=== PATIENT | female | born 1995 | race Hispanic/Latino ===

== ENCOUNTER 2018-02-12 23:51 | Emergency (ER) | payer BC, SELFPAY ==
[2018-02-13 00:39] LABS: Barbiturates NEGATIVE (NEGATIVE); Benzodiazepines NEGATIVE (NEGATIVE); Cocaine NEGATIVE (NEGATIVE); METHAMPHETAM NEGATIVE (NEGATIVE); Methadone NEGATIVE (NEGATIVE); Opiates NEGATIVE (NEGATIVE); Phencyclidine NEGATIVE (NEGATIVE); THC Cannibis NEGATIVE (NEGATIVE)
[2018-02-13 00:40] LABS: Absolute Lymphocytes (CBC) 3.6 K/uL (0.7-4.9); Absolute Monocytes 0.6 K/uL (0.1-1.3); Absolute Neutrophil 4.2 K/uL (1.8-8.0); Basophils % 0.6 % (0-1.3); Eosinophils % 0.5 % (0-4.4); Hematocrit 37.9 % (36.0-45.0); Lymphocytes % 41.9 % (15.3-44.8); MCH 31.3 pg (27.0-35.0); MCV 89.6 fL (80-100); MPV 7.7 fL (7.6-11.3); Monocytes % 7.2 % (3.3-12.3); RBC Red Blood Cell Count 4.23 M/uL (3.86-4.86)
[2018-02-13] MEDS ORDERED: DIAZEPAM 5 MG TABLET ONE (00:43)
[2018-02-13] MEDS ORDERED: NA CHLORIDE 0.9% 1,000 ML ONE (00:43)
[2018-02-13 00:54] LABS: Potassium 3.1 mmol/L (3.5-5.1)
[2018-02-13 01:10] LABS: Urine Blood TRACE (NEG); Urine Glucose NEGATIVE (NEG); Urine Protein NEGATIVE (NEG); Urine Specific Gravity <1.005 (1.005-1.030)
--- NOTE | 2018-02-13 01:29 | ER ---
Nurse's Notes [facility] Name: Christen Saxena Age: 22 yrs Sex: Female : 1995 Arrival Date: 02/13/2018 Time: 00:02 Bed 16 Private MD: Diagnosis: Hyperventilation Presentation: 02/13 00:03 Presenting complaint: Patient states: she is having a panic attack does not know why or bb what she was doing when it started pt states she was drinking alcohol today. Transition of care: patient was not received from another setting of care. Onset of symptoms was February 13, 2018. Risk Assessment: Do you want to hurt yourself or someone else? Patient reports no desire to harm self or others. Initial Sepsis Screen: Does the patient meet any 2 criteria? No. Patient's initial sepsis screen is negative. Does the patient have a suspected source of infection? No. Patient's initial sepsis screen is negative. Care prior to arrival: None. 00:03 Method Of Arrival: Ambulatory bb 00:03 Acuity: JUAN R 3 bb 00:06 Note pt is tachypneic and states "my face in numb". bb Triage Assessment: 00:05 General: Appears distressed, uncomfortable, Behavior is cooperative, anxious. Pain: cc3 Denies pain. EENT: No signs and/or symptoms were reported regarding the EENT system. Neuro: Level of Consciousness is awake, alert, obeys commands, Oriented to person, place, time, situation, Appropriate for age. Cardiovascular: Denies chest pain, Patient's skin is warm and dry. Respiratory: Reports shortness of breath at rest Airway is patent Respiratory effort is even, unlabored, Respiratory pattern is regular, symmetrical. GI: Abdomen is round non-distended. : No signs and/or symptoms were reported regarding the genitourinary system. Derm: No signs and/or symptoms reported regarding the dermatologic system. Musculoskeletal: Circulation, motion, and sensation intact. Range of motion: intact in all extremities. 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 - Social history:: Smoking status: unknown Patient uses alcohol, patient/guardian reports recent binge of alcohol consumption. - Ebola Screening: : No symptoms or risks identified at this time. Screenin:05 Abuse screen: Denies threats or abuse. Denies injuries from another. Nutritional cc3 screening: No deficits noted. Tuberculosis screening: No symptoms or risk factors identified. Fall Risk Ambulatory Aid- None/Bed Rest/Nurse Assist (0 pts). Gait- Normal/Bed Rest/Wheelchair (0 pts) Mental Status- Oriented to own ability (0 pts). Assessment: 00:05 General: see triage assessment. cc3 01:45 Reassessment: Patient appears in no apparent distress at this time. Patient and/or cc3 family updated on plan of care and expected duration. Pain level reassessed. Patient is alert, oriented x 3, equal unlabored respirations, skin warm/dry/pink. GALA Perez discharged the patient home, no prescription given. IV cannula removed and patient left ER vitally stable and ambulatory with her . Vital Signs: 00:04 BP 130 / 89; Pulse 117; Resp 26 S; Pulse Ox 97% on R/A; bb 01:30 BP 128 / 87; Pulse 103; Resp 20 S; Pulse Ox 98% on R/A; cc3 ED Course: 00:02 Patient arrived in ED. bb 00:03 Stephanie Perez FNP-C is PSYCHIATRICP. kb 00:03 Freedom Humphries MD is Attending Physician. kb 00:04 Triage completed. bb 00:04 Arm band placed on Patient placed in an exam room, on a stretcher, on pulse oximetry. bb Family accompanied patient. 00:05 Patient has correct armband on for positive identification. Placed in gown. Bed in low cc3 position. Call light in reach. Side rails up X 1. manager monitoring on. Pulse ox on. NIBP on. 00:08 Kary Garcia is Primary Nurse. cc3 00:25 Inserted saline lock: 20 gauge in left hand, using aseptic technique. Blood collected. cc3 01:45 No provider procedures requiring assistance completed. IV discontinued, intact, cc3 bleeding controlled, No redness/swelling at site. Pressure dressing applied. Administered Medications: 00:35 Drug: NS 0.9% 1000 ml Route: IV; Rate: 1000 ml; Site: left hand; cc3 01:40 Follow up: Response: No adverse reaction; IV Status: Completed infusion; IV Intake: cc3 1000ml 00:35 Drug: Valium 5 mg Route: PO; cc3 01:00 Follow up: Response: No adverse reaction; Anxiety decreased cc3 01:24 Drug: Potassium Chloride 40 mEq Route: PO; rv 01:45 Follow up: Response: No adverse reaction cc3 Intake: 01:40 IV: 1000ml; Total: 1000ml. cc3 Outcome: 01:28 Discharge ordered by MD. monahan 01:45 Discharged to home ambulatory, with family. cc3 01:45 Condition: stable 01:45 Discharge instructions given to patient, family, Instructed on discharge instructions, follow up and referral plans. Demonstrated understanding of instructions, follow-up care. 01:48 Patient left the ED. cc3 Signatures: Stephanie Perez, DURABILITY TECHNICIAN-C DURABILITY TECHNICIAN-CkLucia Burr RN RN bb Jan Castañeda RN RN rv Kary Garcia cc3 Corrections: (The following items were deleted from the chart) 00:06 00:03 Acuity: JUAN R 4 bb bb 04:40 04:39 Response: No adverse reaction; Anxiety decreased cc3 cc3
--- NOTE | 2018-02-13 01:29 | EDPHYS ---
Physician Documentation [facility] Name: Christen Saxena Age: 22 yrs Sex: Female : 1995 Arrival Date: 02/13/2018 Time: 00:02 Bed 16 Private MD: ED Physician Freedom Humphries HPI: 02/13 00:12 This 22 yrs old Female presents to ER via Ambulatory with complaints of kb Anxiety. 00:12 The patient presents to the emergency department with anxiety, a history of substance kb abuse, Type: alcohol . Onset: The symptoms/episode began/occurred 30 minute(s) ago. Associated signs and symptoms: Pertinent positives; anxiety, shortness of breath. Severity of symptoms: At their worst the symptoms were moderate in the emergency department the symptoms are unchanged. The patient has not experienced similar symptoms in the past. The patient has not recently seen a physician. Pt reports drinking alcohol (6-8 drinks) with father's fiance. Got home and started having shortness of breath, breathing fast, anxiety, numbness of face, and tingling in fingers. Pt appears anxious. Pt able to control breathing with coaching. ETOH intoxication noted. 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 - Social history:: Smoking status: unknown Patient uses alcohol, patient/guardian reports recent binge of alcohol consumption. - Ebola Screening: : No symptoms or risks identified at this time. ROS: 00:11 Constitutional: Negative for fever, chills, and weight loss, ENT: Negative for injury, kb pain, and discharge, Neck: Negative for injury, pain, and swelling, Cardiovascular: Negative for chest pain, palpitations, and edema, Abdomen/GI: Negative for abdominal pain, nausea, vomiting, diarrhea, and constipation, Back: Negative for injury and pain, : Negative for injury, bleeding, discharge, and swelling, MS/Extremity: Negative for injury and deformity, Skin: Negative for injury, rash, and discoloration. 00:11 Respiratory: Positive for shortness of breath, Negative for cough, dyspnea on exertion, hemoptysis, orthopnea, pleurisy, sputum production, wheezing. 00:11 Neuro: Positive for numbness, tingling, numbness to face and tingling to fingers after hyperventilating. Exam: 00:10 Head/Face: Normocephalic, atraumatic. ENT: Nares patent. No nasal discharge, no kb septal abnormalities noted. Tympanic membranes are normal and external auditory canals are clear. Oropharynx with no redness, swelling, or masses, exudates, or evidence of obstruction, uvula midline. Mucous membranes moist. Neck: Trachea midline, no thyromegaly or masses palpated, and no cervical lymphadenopathy. Supple, full range of motion without nuchal rigidity, or vertebral point tenderness. No Meningismus. Chest/axilla: Normal chest wall appearance and motion. Nontender with no deformity. No lesions are appreciated. Cardiovascular: Regular rate and rhythm with a normal S1 and S2. No gallops, murmurs, or rubs. Normal PMI, no JVD. No pulse deficits. Abdomen/GI: Soft, non-tender, with normal bowel sounds. No distension or tympany. No guarding or rebound. No evidence of tenderness throughout. Skin: Warm, dry with normal turgor. Normal color with no rashes, no lesions, and no evidence of cellulitis. MS/ Extremity: Pulses equal, no cyanosis. Neurovascular intact. Full, normal range of motion. Neuro: Awake and alert, GCS 15, oriented to person, place, time, and situation. Cranial nerves II-XII grossly intact. Motor strength 5/5 in all extremities. Sensory grossly intact. Cerebellar exam normal. Normal gait. 00:10 Constitutional: The patient appears alert, awake, anxious, smells of alcohol, ETOH. 00:10 Respiratory: Respirations: hyperventilating. Vital Signs: 00:04 BP 130 / 89; Pulse 117; Resp 26 S; Pulse Ox 97% on R/A; bb 01:30 BP 128 / 87; Pulse 103; Resp 20 S; Pulse Ox 98% on R/A; cc3 MDM: 00:03 Patient medically screened. kb 00:10 Data reviewed: vital signs, nurses notes. Data interpreted: Pulse oximetry: on room air kb is 97 %. Interpretation: normal. 01:21 Counseling: I had a detailed discussion with the patient and/or guardian regarding: the kb historical points, exam findings, and any diagnostic results supporting the discharge/admit diagnosis, lab results, the need for outpatient follow up, a family practitioner, to return to the emergency department if symptoms worsen or persist or if there are any questions or concerns that arise at home. 02/13 00:07 Order name: UDS; Complete Time: 00:43 kb 02/13 00:07 Order name: CBC with Diff; Complete Time: 00:53 kb 02/13 00:07 Order name: Basic Metabolic Panel; Complete Time: 00:59 kb 02/13 00:07 Order name: ETOH Level; Complete Time: 00:59 kb 02/13 00:41 Order name: Urine Dipstick--Ancillary (enter results); Complete Time: 01:19 bb 02/13 00:54 Order name: Test Serum, Qualitat; Complete Time: 01:19 EDMS 02/13 00:07 Order name: Urine Dipstick-Ancillary (obtain specimen); Complete Time: 00:50 kb 02/13 00:07 Order name: Urine Test (obtain specimen); Complete Time: 00:50 kb 02/13 00:07 Order name: EKG; Complete Time: 00:08 kb 02/13 00:07 Order name: EKG - Nurse/Tech; Complete Time: 00:50 kb Administered Medications: 00:35 Drug: NS 0.9% 1000 ml Route: IV; Rate: 1000 ml; Site: left hand; cc3 01:40 Follow up: Response: No adverse reaction; IV Status: Completed infusion; IV Intake: cc3 1000ml 00:35 Drug: Valium 5 mg Route: PO; cc3 01:00 Follow up: Response: No adverse reaction; Anxiety decreased cc3 01:24 Drug: Potassium Chloride 40 mEq Route: PO; rv 01:45 Follow up: Response: No adverse reaction cc3 Disposition: 03:01 Co-signature as Attending Physician, Freedom Humphries MD. rn Disposition: 02/13/18 01:28 Discharged to Home. Impression: Hyperventilation. - Condition is Stable. - Discharge Instructions: Hyperventilation, Panic Attacks, [id number]. - Medication Reconciliation Form, Thank You Letter, Antibiotic Education, Prescription Opioid Use form. - Follow up: Emergency Department; When: As needed; Reason: Worsening of condition. Follow up: Private Physician; When: 2 - 3 days; Reason: Recheck today's complaints, Continuance of care, Re-evaluation by your physician. Signatures: Dispatcher [employer] EDStephanie Massey, PAULA LANGE-Lucia Thorne, RN RN Freedom Washburn MD MD rn Vicente, Ronaldo, RN RN rv Cordel, Charlene cc3 Corrections: (The following items were deleted from the chart) 01:48 01:28 02/13/2018 01:28 Discharged to Home. Impression: Hyperventilation. Condition is cc3 Stable. Discharge Instructions: Hyperventilation, Panic Attacks, [id number]. Forms are Medication Reconciliation Form, Thank You Letter, Antibiotic Education, Prescription Opioid Use. Follow up: Emergency Department; When: As needed; Reason: Worsening of condition. Follow up: Private Physician; When: 2 - 3 days; Reason: Recheck today's complaints, Continuance of care, Re-evaluation by your physician. kb
[2018-02-13] MEDS ORDERED: POTASSIUM CL SA 10 MEQ TAB PO ONE (01:31)
[2018-02-13 02:42] VITALS: BP 130/89; O2SAT 97
--- NOTE | 2018-02-13 10:16 | EKG ---
Test Date: 2018-02-13 Test Time: 00:41:21 Dairy Processing Supervisor: JEFFERY MEASUREMENT RESULTS: Intervals: Rate: 106 VA: 140 QRSD: 86 QT: 362 QTc: 480 [place]: P: 52 VA: 140 QRS: 30 T: 33 INTERPRETIVE STATEMENTS: Sinus tachycardia Otherwise normal ECG Compared to ECG 12/06/2013 17:11:39 Sinus rhythm no longer present Sinus arrhythmia no longer present Electronically Signed On 02-13-18 10:16:02 SHELTER DIRECTOR by Galdino Skaggs
== END 2018-02-13 01:48 | disposition home or self-care (01) ==
LOC: ER 23:51
DX: R06.4 Hyperventilation (principal)
CPT/HCPCS: 36415; 80048; 80307; 80320; 81003; 84703; 85025; 93005; 96360; 99284; J7030

== ENCOUNTER 2018-07-30 10:21 | Emergency (ER) | payer BC, SELFPAY ==
[2018-07-30] MEDS ORDERED: HYDROCODONE/APAP 10/325 TAB ONE (11:41)
--- NOTE | 2018-07-30 11:48 | RAD REPORT ---
EXAM DESCRIPTION: RAD - Sacrum And Coccyx - 07/30/2018 11:35 am CLINICAL HISTORY: fall, low back pain COMPARISON: No comparisons FINDINGS: No fracture or subluxation identified.
--- NOTE | 2018-07-30 11:49 | RAD REPORT ---
EXAM DESCRIPTION: RAD - Lumbar Spine 3 Views - 07/30/2018 11:36 am CLINICAL HISTORY: fall Radiculopathy COMPARISON: Sacrum And Coccyx dated 07/30/2018 FINDINGS: Vertebral body heights appear maintained. No compression fracture noted. Disc spaces are m aintained. No spondylolysis or spondylolisthesis. IMPRESSION: Negative study.
--- NOTE | 2018-07-30 12:08 | RAD REPORT ---
EXAM DESCRIPTION: CT - [id number] - 07/30/2018 11:53 am CLINICAL HISTORY: Fall, head and neck injury, headache, neck pain, loss of consciousness COMPARISON: None. TECHNIQUE: Axial 5 mm thick images of the head were obtained. Axial 2 mm thick images of the cervic al spine were obtained with sagittal and coronal reconstruction images generated and reviewed. All CT scans are performed using dose optimization technique as appropriate and may include automated exposure control or mA/KV adjustment according to patient size. FINDINGS: No intracranial hemorrhage, mass, edema or acute intracranial finding. Ventricles are normal. No extr a-axial fluid collections. Mastoid air cells and paranasal sinuses are clear. No globe or orbit abnor mality seen. Cervical bodies are normal in height. There is straightening and slight reversal of the usual cervica l lordosis with the apex at the C5-6 level. No subluxation abnormality. In the trauma setting this is typically due to muscle spasm. Positioning artifact is possible as well. No disk space narrowing. No fracture or acute bony abnormality. Central canal detail is inherently limited. No paraspinal mass or hematoma. IMPRESSION: Negative CT head examination for acute or significant finding. No fracture, subluxation or other acute cervical spine finding.
--- NOTE | 2018-07-30 12:24 | ER ---
Nurse's Notes [facility] Name: Christen Saxena Age: 22 yrs Sex: Female : 1995 Arrival Date: 07/30/2018 Time: 10:24 Bed 17 Private MD: Diagnosis: Unspecified injury of head;Coccyx Sprain Presentation: 07/30 10:27 Presenting complaint: Patient states: "I fell down about 8-9 stairs last night and my sv butt/tailbone hurts and mid back area." Reports hitting the occipital part of her head but no LOC. Care prior to arrival: None. Mechanism of Injury: Fall down 9 steps. Trauma event details: Injury occurred in the [facility], Injury occurred: at home. Injury occurred: July 29, 2018. 10:27 Acuity: JUAN R 3 sv 10:27 Method Of Arrival: Ambulatory sv 10:37 Transition of care: patient was not received from another setting of care. Onset of sv symptoms was July 29, 2018. Risk Assessment: Do you want to hurt yourself or someone else? Patient reports no desire to harm self or others. Initial Sepsis Screen: Does the patient meet any 2 criteria? No. Patient's initial sepsis screen is negative. Does the patient have a suspected source of infection? No. Patient's initial sepsis screen is negative. 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 07/23/2018 sv Trauma Activation: Alert Physician: ED Physician; Name: Dr Lama/Gualberto COTTRELL; Notified At: 10:45; Arrived At: 10:40 Physician: General Surgeon; Name: ; Notified At: 10:45; Arrived At: Physician: Radiology; Name: Lanny Harley-CT; Notified At: 10:45; Arrived At: 10:49 Physician: Respiratory; Name: ; Notified At: 10:45; Arrived At: Physician: Lab; Name: ; Notified At: 10:45; Arrived At: 10:45 Primary RN: Mary Servin RN, Secondary RN: Judy, durability technician: SOCORRO, mail clerk: Gertrude sv Historical: - Allergies: 10:37 No Known Allergies; sv - PMHx: 10:37 Ovarian cyst; sv - PSHx: 10:37 ; sv - Immunization history:: Adult Immunizations up to date. - Social history:: Smoking status: Patient/guardian denies using tobacco, Patient uses alcohol, occasionally. - Ebola Screening: : No symptoms or risks identified at this time. Screenin:38 Abuse screen: Denies threats or abuse. Denies injuries from another. Nutritional sv screening: No deficits noted. Tuberculosis screening: No symptoms or risk factors identified. Fall Risk None identified. Primary Survey: 10:27 NO uncontrolled hemorrhage observed. A: The patient is alert. Airway: patent, No sv supplemental oxygen in use on arrival. Oral cavity: clear, Trachea midline. Breathing/Chest: Respiratory pattern: regular, Respiratory effort: spontaneous, unlabored, Chest inspection: symmetrical rise and fall of the chest. Circulation: Pulses: palpable right radial artery and left radial artery. Skin color: pink, Skin temperature: warm, dry. Disability Alert. Exposure/Environment: All clothing and personal items were removed. Forensic evidence collection is not deemed to be indicated at this time. Items placed in patient belonging bag. There is no evidence of uncontrolled external bleeding. No obvious injuries are noted at this time. A warming method has been applied: A warm blanket has been provided to the patient. 12:03 Reassessment Airway Airway Patent Oxygen No O2 Oral cavity Clear Trachea Midline sv Breathing/Chest Respiratory pattern Regular Respiratory effort Spontaneous Unlabored Chest inspection Symmetrical Circulation Heart tones Present Pulses Palpable Color Shedd Temperature Warm Dry Disability Alert. Secondary Survey: 10:27 HEENT: No deficits noted. Gastrointestinal: No deficits noted. : No deficits noted. sv No signs and/or symptoms were reported regarding the genitourinary system. Musculoskeletal: No deficits noted. No signs and/or symptoms reported regarding the musculoskeletal system. Assessment: 10:57 Reassessment: Patient appears in no apparent distress at this time. No changes from sv previously documented assessment. Patient and/or family updated on plan of care and expected duration. Pain level reassessed. Patient is alert, oriented x 3, equal unlabored respirations, skin warm/dry/pink. Pain: Complains of pain in low back area, mid back area and sacrum Pain does not radiate. Pain currently is 6 out of 10 on a pain scale. Quality of pain is described as tender, Pain began last night Is intermittent, episodic, Alleviated by repositioning, Aggravated by increased activity, weight bearing. 12:51 Reassessment: Patient appears in no apparent distress at this time. No changes from sv previously documented assessment. Patient and/or family updated on plan of care and expected duration. Pain level reassessed. Patient is alert, oriented x 3, equal unlabored respirations, skin warm/dry/pink. Vital Signs: 10:37 BP 104 / 68; Pulse 75; Resp 18; Temp 98.6(O); Pulse Ox 97% on R/A; Weight 77.11 kg; sv Height 5 ft. 3 in. (160.02 cm); Pain 6/10; 11:30 BP 120 / 70; Pulse 77; Resp 16; Pulse Ox 99% ; sv 12:50 BP 128 / 81; Pulse 85; Resp 18; Temp 98.5; Pulse Ox 100% ; Pain 2/10; sv 12:50 Pain 7/10; sv 10:37 Body Mass Index 30.11 (77.11 kg, 160.02 cm) sv Brave Coma Score: 10:27 Eye Response: spontaneous(4). Verbal Response: oriented(5). Motor Response: obeys sv commands(6). Total: 15. 12:51 Eye Response: spontaneous(4). Verbal Response: oriented(5). Motor Response: obeys sv commands(6). Total: 15. Trauma Score (Adult): 10:27 Eye Response: spontaneous(1); Verbal Response: oriented(1); Motor Response: obeys sv commands(2); Systolic BP: > 89 mm Hg(4); Respiratory Rate: 10 to 29 per min(4); Brave Score: 15; Trauma Score: 12 12:51 Eye Response: spontaneous(1); Verbal Response: oriented(1); Motor Response: obeys sv commands(2); Systolic BP: > 89 mm Hg(4); Respiratory Rate: 10 to 29 per min(4); Jamison Score: 15; Trauma Score: 12 ED Course: 10:24 Patient arrived in ED. as 10:27 Arm band placed on Patient placed in an exam room, on a stretcher. sv 10:27 Patient has correct armband on for positive identification. Placed in gown. Bed in low sv position. Call light in reach. Adult w/ patient. Pulse ox on. NIBP on. Door closed. Pillow given. 10:27 Patient maintains SpO2 saturation greater than 95% on room air. sv 10:30 Thermoregulation: warm blanket given to patient. sv 10:33 Gualberto You PA is PHCP. [facility] 10:33 Yonatan Lama MD is Attending Physician. [facility] 10:34 Mary Álvarez RN is Primary Nurse. sv 10:36 Triage completed. sv 10:40 Nurse Practitioner and/or Physician Online Retailer to see patient. sv 10:50 Radiology exam delayed due to test not completed at this time. sw 11:25 X-ray completed. Patient tolerated procedure well. Patient moved to CT via wheelchair. sw 11:26 Lumbar Spine (3 Views) XRAY In Process Unspecified. EDMS 11:26 Sacrum And Coccyx XRAY In Process Unspecified. EDMS 11:41 CT completed. Patient tolerated procedure well. Patient moved to CT via wheelchair. Patient moved back from CT. 11:49 Patient moved back from CT. sv 11:54 CT Head C Spine In Process Unspecified. EDMS 12:51 No provider procedures requiring assistance completed. Patient did not have IV access sv during this emergency room visit. Administered Medications: 12:03 Drug: Flinton 10 mg-325 mg 1 tabs Route: PO; sv 12:50 Follow up: Pain 7/10 Adult; Response: No adverse reaction; Pain is decreased sv Intake: 10:27 PO: 0ml; Total: 0ml. sv Output: 10:27 Urine: 0ml; Total: 0ml. sv Outcome: 12:23 Discharge ordered by . m 12:51 Discharged to home ambulatory, with family. sv 12:51 Condition: stable 12:51 Discharge instructions given to patient, family, Instructed on discharge instructions, follow up and referral plans. medication usage, Demonstrated understanding of instructions, follow-up care, medications, Prescriptions given X 1. 12:51 Patient left the ED. sv 12:51 Patient's length of stay in the Emergency Department was greater than 2 hours. due to sv dischargePatient's length of stay extended due to Signatures: Dispatcher [employer] EDMS Mary Álvarez RN RN Gualberto You PA PA jmm Jones, Susan sj Martinez, Amelia as Warren, Sandee sw Corrections: (The following items were deleted from the chart) 10:54 10:27 Trauma Activation: Not Applicable sv sv
--- NOTE | 2018-07-30 12:24 | EDPHYS ---
Physician Documentation [facility] Name: Christen Saxena Age: 22 yrs Sex: Female : 1995 Arrival Date: 07/30/2018 Time: 10:24 Bed 17 Private MD: ED Physician Yonatan Lama HPI: 07/30 10:42 This 22 yrs old Female presents to ER via Ambulatory with complaints of Fall jmm Injury. 10:42 Details of fall: The patient fell from a height. Onset: The symptoms/episode jmm began/occurred acutely, last night. Associated injuries: The patient sustained injury to the head, injury to the low back. This is a 22 year old female that presents to the ED with complaints of tailbone pain. patient slipped while walking down her stairs in socks. Patient states she fell down approx 8 steps. States hitting her head and feeling a pop in her lower back. patient states she lost consciousness. Denies headache or neck pain. Denies etoh last night. Denies chest pain, denies shortness of breath, denies abdominal pain, denies vomiting. . 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 - Social history:: Smoking status: Patient/guardian denies using tobacco, Patient uses alcohol, occasionally. - Ebola Screening: : No symptoms or risks identified at this time. ROS: 10:42 Constitutional: Negative for fever, chills, and weight loss, Cardiovascular: Negative jmm for chest pain, palpitations, and edema, Respiratory: Negative for shortness of breath, cough, wheezing, and pleuritic chest pain. 10:42 Neck: Negative for pain with movement, pain at rest. 10:42 Abdomen/GI: Negative for abdominal pain, nausea and vomiting. 10:42 Back: Positive for pain with movement. 10:42 Neuro: Negative for headache. 10:42 All other systems are negative. Exam: 10:42 Chest/axilla: Normal chest wall appearance and motion. Cardiovascular: Regular rate jmm and rhythm. No edema appreciated Respiratory: Normal respirations, no respiratory distress appreciated Abdomen/GI: Non distended, soft 10:42 Skin: General appearance color normal MS/ Extremity: Moves all extremities, no obvious deformities appreciated, no edema noted to the lower extremities Neuro: Awake and alert, normal gait Psych: Behavior is normal, Mood is normal, Patient is cooperative and pleasant 10:42 Constitutional: The patient appears in no acute distress, alert, awake. 10:42 Head/face: Exam is negative for cronin signs, raccoon eyes. 10:42 Neck: C-spine: appears grossly normal, ROM/movement: is normal. 10:42 Respiratory: the patient does not display signs of respiratory distress, Respirations: normal, Breath sounds: are clear throughout. 10:42 Abdomen/GI: Inspection: abdomen appears normal, Bowel sounds: normal, Palpation: abdomen is soft and non-tender, in all quadrants. 10:42 Back: pain, of the sacrum, ROM is normal. Vital Signs: 10:37 BP 104 / 68; Pulse 75; Resp 18; Temp 98.6(O); Pulse Ox 97% on R/A; Weight 77.11 kg; sv Height 5 ft. 3 in. (160.02 cm); Pain 6/10; 11:30 BP 120 / 70; Pulse 77; Resp 16; Pulse Ox 99% ; sv 12:50 BP 128 / 81; Pulse 85; Resp 18; Temp 98.5; Pulse Ox 100% ; Pain 2/10; sv 12:50 Pain 7/10; sv 10:37 Body Mass Index 30.11 (77.11 kg, 160.02 cm) sv [place] Coma Score: 10:27 Eye Response: spontaneous(4). Verbal Response: oriented(5). Motor Response: obeys sv commands(6). Total: 15. 12:51 Eye Response: spontaneous(4). Verbal Response: oriented(5). Motor Response: obeys sv commands(6). Total: 15. Trauma Score (Adult): 10:27 Eye Response: spontaneous(1); Verbal Response: oriented(1); Motor Response: obeys sv commands(2); Systolic BP: > 89 mm Hg(4); Respiratory Rate: 10 to 29 per min(4); [place] Score: 15; Trauma Score: 12 12:51 Eye Response: spontaneous(1); Verbal Response: oriented(1); Motor Response: obeys sv commands(2); Systolic BP: > 89 mm Hg(4); Respiratory Rate: 10 to 29 per min(4); [place] Score: 15; Trauma Score: 12 MDM: 10:[address] [facility] 12:22 Data reviewed: vital signs, nurses notes. Counseling: I had a detailed discussion with [facility] the patient and/or guardian regarding: the historical points, exam findings, and any diagnostic results supporting the discharge/admit diagnosis, radiology results, the need for outpatient follow up, to return to the emergency department if symptoms worsen or persist or if there are any questions or concerns that arise at home. 12:22 ED course: CT imaging is negative. Plain films negative. Patient given head injury [facility] return precautions patient understood and agrees with the plan of care. . 07/30 11:16 Order name: Urine Dipstick--Ancillary (enter results) 07/30 11:16 Order name: Urine --Ancillary (enter results) 07/30 10:46 Order name: CT Head C Spine; Complete Time: 12:10 [facility] 07/30 10:46 Order name: Lumbar Spine (3 Views) XRAY; Complete Time: 12:03 [facility] 07/30 10:46 Order name: Sacrum And Coccyx XRAY; Complete Time: 12:03 [facility] Administered Medications: 12:03 Drug: [place] 10 mg-325 mg 1 tabs Route: PO; sv 12:50 Follow up: Pain 09/30 Adult; Response: No adverse reaction; Pain is decreased sv Disposition: 15:29 Co-signature as Attending Physician, Yonatan Lama MD I agree with the assessment and kdr plan of care. Disposition: 07/30/18 12:23 Discharged to Home. Impression: Unspecified injury of head, Coccyx Sprain. - Condition is Stable. - Discharge Instructions: Back Pain, Adult, Head Injury, Adult. - Prescriptions for Ultracet 37.5- 325 mg Oral Tablet - take 1 tablet by ORAL route every 6 hours - for up to 5 days; do not exceed 8 tablets per day.; 12 tablet. - Medication Reconciliation Form, Thank You Letter, Antibiotic Education, Prescription Opioid Use form. - Follow up: Private Physician; When: 2 - 3 days; Reason: Recheck today's complaints, Continuance of care, Re-evaluation by your physician. Signatures: Dispatcher [employer] Mary Gibson RN RN Yonatan Luciano MD MD kdr Mickail, Joel, PA PA jmm Corrections: (The following items were deleted from the chart) 12:51 12:23 07/30/2018 12:23 Discharged to Home. Impression: Unspecified injury of head; sv Coccyx Sprain. Condition is Stable. Forms are Medication Reconciliation Form, Thank You Letter, Antibiotic Education, Prescription Opioid Use. Follow up: Private Physician; When: 2 - 3 days; Reason: Recheck today's complaints, Continuance of care, Re-evaluation by your physician. pam
[2018-07-30 13:05] VITALS: BP 104/68; TEMP 98.6; O2SAT 97
[2018-07-30 13:59] LABS: Urine Blood 3+ (NEG); Urine Glucose NEGATIVE (NEG); Urine Protein 1+ (NEG); Urine pH 7.5 (5.0-7.0)
== END 2018-07-30 12:51 | disposition home or self-care (01) ==
LOC: ER 10:21
DX: S09.90XA Unspecified injury of head, initial encounter (principal); S33.8XXA Sprain of other parts of lumbar spine and pelvis, initial encounter; W10.9XXA Fall (on) (from) unspecified stairs and steps, initial encounter; Y93.01 Activity, walking, marching and hiking
CPT/HCPCS: 70450; 72100; 72125; 72220; 81003; 81025; 99285

== ENCOUNTER 2019-09-27 17:24 | Emergency (ER) | payer SELFPAY ==
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
[2019-09-27] MEDS ORDERED: NA CHLORIDE 0.9% 1,000 ML ONE (20:25)
[2019-09-27 20:55] LABS: Absolute Lymphocytes (CBC) 2.7 K/uL (0.7-4.9); Basophils % 0.4 % (0-1.3); Hematocrit 37.9 % (36.0-45.0); Lymphocytes % 35.2 % (15.3-44.8); MPV 7.7 fL (7.6-11.3); RBC Red Blood Cell Count 4.19 M/uL (3.86-4.86)
[2019-09-27] MEDS ORDERED: TETANUS & DIPHTHERIA TOX,ADULT 0.5 ML VIAL ONE (20:57)
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
[2019-09-27 21:36] LABS: Potassium 3.8 mmol/L (3.5-5.1)
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
[2019-09-27] MEDS ORDERED: TRAMADOL HCL 50 MG TAB ONE (22:05)
[2019-09-27 22:54] VITALS: TEMP 98.1
[2019-09-27 22:55] VITALS: BP 113/77; O2SAT 100
== END 2019-09-27 22:07 | disposition home or self-care (01) ==
LOC: ER 17:24
DX: S09.90XA Unspecified injury of head, initial encounter (principal); S30.1XXA Contusion of abdominal wall, initial encounter; S90.811A Abrasion, right foot, initial encounter; Y04.2XXA Assault by strike against or bumped into by another person, initial encounter; Y93.9 Activity, unspecified; Y92.9 Unspecified place or not applicable; Z23 Encounter for immunization
CPT/HCPCS: 36415; 70450; 72125; 74177; 80048; 82565; 85025; 90471; 90714; 96360; 99284; J7030; Q9967

== ENCOUNTER 2019-09-30 12:15 | Emergency (ER) | payer SELFPAY ==
[2019-09-30] MEDS ORDERED: ONDANSETRON 4 MG (ODT) TAB ONE (15:25)
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
[2019-09-30 16:58] VITALS: TEMP 98.1
[2019-09-30 17:01] VITALS: BP 107/76; O2SAT 98
== END 2019-09-30 16:54 | disposition home or self-care (01) ==
LOC: ER 12:15
DX: S06.0X9A Concussion with loss of consciousness of unspecified duration, initial encounter (principal); R11.10 Vomiting, unspecified; R51 Headache; Y04.2XXA Assault by strike against or bumped into by another person, initial encounter; Y93.9 Activity, unspecified
CPT/HCPCS: 70450; 99283

== ENCOUNTER 2020-11-28 18:48 | Emergency (ER) | payer SELFPAY ==
--- NOTE | 2020-11-28 19:32 | EDPHYS ---
Physician Documentation [facility] Name: Christen Saxena Age: 25 yrs Sex: Female : 1995 Arrival Date: 11/28/2020 Time: 18:52 Bed Waiting Private MD: ED Physician Freedom Humphries HPI: 11/28 19:29 This 25 yrs old Female presents to ER via Ambulatory with complaints of Eye rn Pain, Redness of Eye. 19:29 The patient is experiencing redness, tearing, The patient sustained None. to both eyes, rn caused by an unknown mechanism. Onset: The symptoms/episode began/occurred 3 week(s) ago. Duration: the symptoms are continuous. Aggravated by blinking, light, Alleviated by nothing. Associated signs and symptoms: Pertinent negatives: chills, dizziness, fever, headache, runny nose. Patient wears soft contacts. Severity of symptoms: At their worst the symptoms were mild in the emergency department the symptoms are unchanged. The patient has not experienced similar symptoms in the past. The patient has not recently seen a physician. Patient reports redness and tearing of both eyes for 2 to 3 weeks. Diagnosed with Covid 3 weeks ago and states symptoms began around that time. No blurred vision. Does not have contacts in right now. No injury or splash. Does not feel like anything is in the eyes. No pain with eye movement. Reports mild sensitivity to light.. 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 - Social history:: Smoking status: Patient denies any tobacco usage or history of. Patient uses alcohol, occasionally. - Family history:: not pertinent. - Hospitalizations: : No recent hospitalization is reported. ROS: 19:29 Constitutional: Negative for fever, chills, and weight loss, Eyes: Positive for redness rn and clear drainage bilateral eyes ENT: Negative for injury, pain, and discharge, Cardiovascular: Negative for chest pain, palpitations, and edema, Respiratory: Negative for shortness of breath, cough, wheezing, and pleuritic chest pain, Neuro: Negative for headache, weakness, numbness, tingling, and seizure. Exam: 19:29 Constitutional: This is a well developed, well nourished patient who is awake, alert, rn and in no acute distress. Head/Face: Normocephalic, atraumatic. Eyes: Pupils equal round and reactive to light, extra-ocular motions intact. Lids and lashes normal. Cornea within normal limits. No evidence of corneal trauma or ulceration. Periorbital areas with no swelling, redness, or edema. Mild conjunctival injection with scleral injection bilaterally. Negative for hyphema. Negative for hypopyon Neuro: Awake and alert, GCS 15, oriented to person, place, time, and situation. Cranial nerves II-XII grossly intact. Motor strength 5/5 in all extremities. Sensory grossly intact. Cerebellar exam normal. Normal gait. Vital Signs: 19:26 BP 127 / 100; Pulse 90; Resp 20; Temp 98.6(O); Pulse Ox 100% ; Weight 79.38 kg (R); kg Height 5 ft. 3 in. (160.02 cm) (R); Pain 8/10; 19:26 Body Mass Index 31.00 (79.38 kg, 160.02 cm) kg MDM: 19:28 Patient medically screened. rn 19:29 Differential diagnosis: Corneal abrasion of Corneal ulcer of Acute iritis of Data rn reviewed: vital signs, nurses notes, and as a result, I will discharge patient. Counseling: I had a detailed discussion with the patient and/or guardian regarding: the historical points, exam findings, and any diagnostic results supporting the discharge/admit diagnosis, the need for outpatient follow up, to return to the emergency department if symptoms worsen or persist or if there are any questions or concerns that arise at home. Special discussion: I discussed with the patient/guardian in detail that at this point there is no indication for admission to the hospital. It is understood, however, that if the symptoms persist or worsen the patient needs to return immediately for re-evaluation. Based on the history and exam findings, there is no indication for further emergent testing or inpatient evaluation. I discussed with the patient/guardian the need to see the opthamologist for further evaluation of the symptoms. Administered Medications: No medications were administered Disposition Summary: 11/28/20 19:32 Discharge Ordered Location: Home rn Problem: an ongoing problem rn Symptoms: are unchanged rn Condition: Stable rn Diagnosis - Unspecified conjunctivitis rn Followup: rn - With: Dana Medellin MD - When: 1 - 2 days - Reason: Recheck today's complaints, Re-evaluation by your physician Discharge Instructions: - Discharge Summary Sheet rn - Bacterial Conjunctivitis, Adult rn - Viral Conjunctivitis, Adult rn Forms: - Medication Reconciliation Form rn - Thank You Letter rn - Antibiotic clinical appeals rn - Prescription Opioid Use rn Prescriptions: - Vigamox 0.5 % Ophthalmic Drops - instill 1 drop by OPHTHALMIC route every 8 hours for 7 days; 5 milliliter; rn Refills: 0, Product Selection Permitted Signatures: Freedom Humphries MD MD rn Graham, Kristen, RN RN kg
--- NOTE | 2020-11-28 19:32 | ER ---
Nurse's Notes [facility] Name: Christen Saxena Age: 25 yrs Sex: Female : 1995 Arrival Date: 11/28/2020 Time: 18:52 Bed Waiting Private MD: Diagnosis: Unspecified conjunctivitis Presentation: 11/28 19:26 Chief complaint: Patient states: Red and burning eyes x 3 wks since getting COVID. kg Coronavirus screen: Vaccine status: Patient reports being unvaccinated. Client denies travel out of the [place] in the last 14 days. Client presents with at least one sign or symptom that may indicate coronavirus-19. Standard/surgical mask placed on the client. Provider contacted for isolation considerations. Client reports previous positive COVID test result. Date of collection: November 13, 2020. Ebola Screen: Patient negative for fever greater than or equal to 101.5 degrees Fahrenheit, and additional compatible Ebola Virus Disease symptoms Patient denies exposure to infectious person. Patient denies travel to an Ebola-affected area in the 21 days before illness onset. Onset of symptoms was November 09, 2020. 19:26 Method Of Arrival: Ambulatory kg 19:49 Mechanism of Injury: No Mechanism of Injury. kg 19:49 Acuity: JUAN R 4 kg 19:49 Risk Assessment: Do you want to hurt yourself or someone else? Patient reports no kg desire to harm self or others. 19:50 Initial Sepsis Screen: Does the patient meet any 2 criteria? No. Patient's initial kg sepsis screen is negative. Does the patient have a suspected source of infection? No. Patient's initial sepsis screen is negative. Triage Assessment: 19:28 General: Appears in no apparent distress. Behavior is calm, cooperative, appropriate kg for age, quiet. Pain: Complains of pain in eyes Pain currently is 10 out of 10 on a pain scale. at worst was 10 out of 10 on a pain scale. level that patient reports is acceptable is 3 out of 10 on a pain scale. EENT: Eyes are tearing on right outer canthus, outer aspect of conjuctiva of right eye, iris of right eye, inner aspect of conjuctiva of right eye, outer aspect of conjuctiva of left eye, iris of left eye and inner aspect of conjunctiva of left eye Redness jose, worse in right eye. 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 - Social history:: Smoking status: Patient denies any tobacco usage or history of. Patient uses alcohol, occasionally. - Family history:: not pertinent. - Hospitalizations: : No recent hospitalization is reported. Screenin:48 Abuse screen: Denies threats or abuse. Denies injuries from another. Nutritional kg screening: No deficits noted. Tuberculosis screening: No symptoms or risk factors identified. Fall Risk None identified. Vital Signs: 19:26 BP 127 / 100; Pulse 90; Resp 20; Temp 98.6(O); Pulse Ox 100% ; Weight 79.38 kg (R); kg Height 5 ft. 3 in. (160.02 cm) (R); Pain 8/10; 19:26 Body Mass Index 31.00 (79.38 kg, 160.02 cm) kg ED Course: 18:52 Patient arrived in ED. am2 19:28 Freedom Humphries MD is Attending Physician. rn 19:28 Arm band placed on left wrist. kg 19:31 Dana Medellin MD is Referral Physician. rn 19:48 Patient has correct armband on for positive identification. kg 19:49 Triage completed. kg 19:49 No provider procedures requiring assistance completed. Patient did not have IV access kg during this emergency room visit. Administered Medications: No medications were administered Outcome: 19:32 Discharge ordered by . rn 19:49 Discharged to home ambulatory. kg 19:49 Condition: good 19:49 Discharge instructions given to patient, Instructed on discharge instructions, follow up and referral plans. Demonstrated understanding of instructions, follow-up care, medications, Prescriptions given X 1. 19:50 Patient left the ED. kg Signatures: Freedom Humphries MD MD rn Moreno, Amanda am2 Iris Loredo RN RN kg
[2020-11-28 19:57] VITALS: BP 127/100; TEMP 98.6; O2SAT 100
== END 2020-11-28 19:50 | disposition home or self-care (01) ==
LOC: ER 18:48
DX: H10.9 Unspecified conjunctivitis (principal)
CPT/HCPCS: 99282

== ENCOUNTER 2021-09-02 11:18 | Emergency (ER) | payer SELFPAY ==
--- OUTSIDE RECORDS SUMMARY | 2021-09-02 11:22 | XMS REPORT | Continuity of Care Document ---
:1995 Author Organization [facility] t Address 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 Attending Clinician CABRERA Attending Clinician Unavailable CABRERA Admitting Clinician Unavailable Payers Payer Name Policy Type Policy Number Effective Date Expiration Date S ource Problems Condition Condition Condition Status Onset Resolution Last Treating Co mments Source Name Details Category Date Date Treatment Clinician Date No known No known Disease Unive rs active active ity of problems problems [facility] Allergies, Adverse Reactions, Alerts Allergy Allergy Status Severity Reaction(s) Onset Inactive Treating Comm ents Source Name Type Date Date Clinician NO KNOWN Drug Active Univers ALLERGIE Class ity of S [facility] Social History Social Habit Start Date Stop Date Quantity Comments Source Exposure to Yes [facility] SARS-CoV-2 (event) Medica l Branch Sex Assigned At [birth year] [facility] 00:00:00 00:00:00 [facility] Branch Smoking Status Start Date Stop Date Source Unknown if ever smoked [facility] Medications Ordered Filled Start Stop Current Ordering Indication Dosage Frequency Signature Comments Components Source Medication Medication Date Date Medication? Clinician (SIG) Name Name NaCl 0.9% 2020- No 500mL at 999 Univ ers (NS) bolus 8-24 08-24 mL/hr, 500 it y of infusion 03:15: 03:00 mL, IV [place] 500 mL 00 :00 Piggyback, Medical ONCE, 1 Branch dose, 11/13/20 at 2215, STAT iopamidol 2020- No [id number] 100mL 100 mL, Univers (ISOVUE 11-14 Intravenou ity o f 370-500 mL) 01:41: 01:41 s, ONCE, 1 [place] injection 00 :00 dose, Mon Medic al 100 mL 11/13/20 at [place] 2100, Routine ibuprofen 2020- No 800mg 800 mg, Uni vers (IBU) 11-14 Oral, ity of tablet 800 01:00: 00:04 ONCE, 1 [place] mg 00 :00 dose, [facility] Medical 11/13/20 at [place] 2000, LYNETTE acetaminoph 2020- No 1000mg 1,000 mg, Univers en 11-14 Oral, ity of (TYLENOL) 01:00: 00:04 ONCE, 1 [place] tablet 00 :00 dose, [facility] 1,000 mg 11/13/20 at [facility] 1999, Routine NaCl 0.9% 2020- No 1000mL at 999 Uni vers (NS) bolus 11-13 mL/hr, ity of infusion 23:15: 01:25 1,000 mL, Kvng as 1,000 mL 00 :[address] [facility] ONCE, 1 dose, [facility] 11/13/20 at 1815, STAT benzonatate Yes [id number] 100mg Take 1 Univers 100 mg 8-23 capsule by ity of capsule 00:00: mouth 3 [place] 00 (three) Medical times Branch daily as needed for Cough. albuterol 0 Yes [id number] 2{puff} Inhale 2 Univers 90 8-23 Puffs ity of mcg/actuati 00:00: every 4 [place] as on inhaler 00 (four) Medical hours as Branch needed for Wheezing or Shortness of Breath. benzonatate 0 Yes [id number] 100mg Take 1 Univers 100 mg 8-23 capsule by ity of capsule 00:00: mouth 3 [place] 00 (three) Medical times Branch daily as needed for Cough. albuterol Yes [id number] 2{puff} Inhale 2 Univers 90 8-23 Puffs ity of mcg/actuati 00:00: every 4 [place] as on inhaler 00 (four) Medical hours as Branch needed for Wheezing or Shortness of Breath. benzonatate Yes [id number] 100mg Take 1 Univers 100 mg 8-23 capsule by ity of capsule 00:00: mouth 3 [place] 00 (three) Medical times Branch daily as needed for Cough. albuterol Yes [id number] 2{puff} Inhale 2 Univers 90 8-23 Puffs ity of mcg/actuati 00:00: every 4 [place] as on inhaler 00 (four) Medical hours as Branch needed for Wheezing or Shortness of Breath. Vital Signs Vital Name Observation Time Observation Value Comments Source Systolic blood 2020-11-14 03:00:00 133 mm[Hg] [facility] Diastolic blood 2020-11-14 03:00:00 88 mm[Hg] [facility] Heart rate 2020-11-14 03:00:00 85 /min [facility] Body temperature 2020-11-14 03:00:00 36.67 Roselyn [facility] Respiratory rate 2020-11-14 03:00:00 18 /min [facility] Oxygen saturation in 2020-11-14 03:00:00 99 /min [facility] Arterial blood by [facility] [place] Pulse oximetry [place] Body weight 2020-11-13 21:59:00 84.823 kg [facility] Procedures Procedure Date / Time Performed Performing Clinician Sourc e CT CHEST PULMONARY 2020-11-14 01:46:07 Dave Cabrera [facility] ANGIOGRAM [facility] D-DIMER 2020-11-14 00:03:00 Dave Cabrera [facility] [place] [facility] BASIC METABOLIC PANEL 2020-11-13 22:46:00 Dave Cabrera [facility] (NA, K, CL, CO2, Medical [place] GLUCOSE, BUN, CREATININE, CA) CBC WITH DIFF 2020-11-13 22:46:00 Dave Cabrera [facility] [place] [facility] POCT TEST 2020-11-13 22:46:00 Dave Cabrera [facility] URINALYSIS 2020-11-13 22:40:00 Dave Cabrera [facility] [place] [facility] XR CHEST 1 VW 2020-11-13 22:36:52 Dave Cabrera [facility] [place] [facility] NOTICE OF PRIVACY 2020-11-13 21:48:44 Doctor Unassigned, No Univ [facility] PRACTICES Name Medical [place] Encounters Start End Encounter Admission Attending Care Care Encounter Source Date/Time Date/Time Type Type Clinicians Facility Department ID 2020-11-28 2020-11-28 Nurse Halina Francisco [id number] Univers 00:00:00 00:00:00 Triage MALLY [id number] it y [facility] [id number] Kvng as [id number] [facility] 019 Branch 2020-11-13 2020-11-13 Emergency [facility] [id number] Univers 17:00:00 22:28:00 Dave [place] [id number] i ty [facility] [id number] [place] [facility] [id number] [facility] 084 Branch 2020-11-13 2020-11-13 Emergency X [facility] ERT [id number] Univers 17:00:00 22:28:00 DAVE [facility] Results Test Description Test Time Test Results Result Source Comments Comments CT CHEST 2020-10-23 Impression: No CTA Univer sity of PULMONARY 4 evidence for pulmonary [place] [facility] ANGIOGRAM 02:35:40 embolus. Minimal Branch patchy foci of ground glass nodularity in the lungs bilaterally,suggestive of multifocal pneumonia. RL: 460 AFC: [id number] Ordering physician: DAVE CABRERA Indication: Chest pain, short of breath, elevated d-dimer Comparison: Chest radiograph dated 11/13/2020 Technique: CTA of the chest was performed following the administration ofintravenous contrast material. Three-dimensional reformats were generatedfollowing completion of the exam. CT scan was performed according to ALARA(as low as reasonably achievable) policy. Findings: The visualized thyroid gland is within normal limits. There is nothoracic aortic aneurysm or dissection. The heart is normal in size withoutsignificant pericardial effusion. No filling defect is appreciated in thepulmonary arteries to the level of the distal segmental arteries. Nopathologically enlarged mediastinal or hilar lymph nodes are identified. No acute process is identified in the upper abdomen. There is minimalpatchy foci of groundglass nodularity in the lungs bilaterally.. Bonewindows through the chest demonstrate no osseous destructive lesion. [facility], Radiant Results Inft User - 11/13/2020 9:36 PM CDT Ordering physician: DAVE Laradication: Chest pain, short of breath, elevated d-dimerComparison: Chest radiograph dated 11/13/2020Technique: CTA of the chest was performed following the administration ofintravenous contrast material. Three-dimensional reformats were generatedfollowing completion of the exam. CT scan was performed according to ALARA(as low as reasonably achievable) policy.Findings: The visualized thyroid gland is within normal limits. There is nothoracic aortic aneurysm or dissection. The heart is normal in size withoutsignificant pericardial effusion. No filling defect is appreciated in thepulmonary arteries to the level of the distal segmental arteries. Nopathologically enlarged mediastinal or hilar lymph nodes are identified.No acute process is identified in the upper abdomen. There is minimalpatchy foci of groundglass nodularity in the lungs bilaterally.. Bonewindows through the chest demonstrate no osseous destructive lesion. IMPRESSIONImpression:N o CTA evidence for pulmonary embolus.Minimal patchy foci of ground glass nodularity in the lungs bilaterally,suggestive of multifocal pneumonia.RL: [id number]: [id number] signed by Diane Mckenzie MD, PhD at 11/13/2020 9:35 PM D-DIMER 2020-11-14 00:43:58 Test Item Value Reference Range Interpretation Comme nts D-DIMER (test code = See_Comment H [Autom ated message] The 1480230258) system which [employer] nerated this result tra nsmitted reference range : <0.41 ?g/mL (FEU). Th e reference range was not used to interpr et this result as normal/abnormal . GRAHAM (test code = GRAHAM) This test may be used in conjunction with a clinical pretest probability (PTP) assessment model to exclude venous thromboembolism (VTE) in patients suspected of deep venous thrombosis (DVT) and pulmonary embolism (PE) A D-Dimer value less than 0.50 ?g/ml (FEU) has a negative predicative value of 96 to 100% (95% CI)and 97 to 100% (95% CI) as an aid in the diagnosis of deep vein thrombosis (DVT) and pulmonary embolism when there is low or moderate pretest probability of PE or DVT. D-Dimer values are expressed in initial fibrinogen equivalent units (FEU)" The assay results should be used with other information, including the clinical context, in forming a diagnosis. Lab Interpretation Abnormal (test code = 90966-4) [facility] WITH [id number] 23:43:37 Test Item Value Reference Range Interpretation Comments WBC (test code = See_Comment L [Automated 9232-2) message] The sy stem which generated this result transmitted reference range : 4.30 - 11.10 10*3/?L. The reference range was not used to interpret this result as normal/abnormal . RBC (test code = See_Comment [Automated 682-8) message] The sy stem which generated this result transmitted reference range : 3.93 - 5.25 10*6/?L. The reference range was not used to interpret this result as normal/abnormal . HGB (test code = 13.9 g/dL 11.6-15.0 718-7) HCT (test code = 40.4 % 35.7-45.2 4544-3) MCV (test code = 87.3 fL 80.6-95.5 787-2) MCH (test code = 30.0 pg 25.9-32.8 785-6) MCHC (test code = 34.4 g/dL 31.6-35.1 786-4) RDW-SD (test code = 39.6 fL 39.0-49.9 81479-9) RDW-CV (test code = 12.4 % 12.0-15.5 788-0) PLT (test code = See_Comment [Automated 537-3) message] The sy stem which generated this result transmitted reference range : 166 - 358 10*3/ ?L. The reference r [place] was not used to interpret this result as normal/abnormal . MPV (test code = 9.3 fL 9.5-12.9 L 93440-4) NRBC/100 WBC (test See_Comment [Automat ed code = 3234777426) message] The system which generated this result transmitted reference range : 0.0 - 10.0 /100 WBCs. The refer ence range was not u sed to interpret th is result as normal/abnormal . NRBC x10^3 (test code <0.01 See_Comment [Auto mated = 1332140822) message] The s ystem which generated this result transmitted reference range : 10*3/?L. The reference range was not used to interpret this result as normal/abnormal . GRAN MAT (NEUT) % 56.3 % (test code = 770-8) IMM GRAN % (test code 0.50 % = 6939730090) LYMPH % (test code = 33.0 % 736-9) MONO % (test code = 9.4 % 5905-5) EOS % (test code = 0.3 % 713-8) BASO % (test code = 0.5 % 706-2) GRAN MAT x10^3(ANC) 2.10 10*3/uL 1.88-7.09 (test code = 3891050342) IMM GRAN x10^3 (test <0.03 0.00-0.06 code = 0052415819) LYMPH x10^3 (test code 1.23 10*3/uL 1.32-3.29 L = 731-0) MONO x10^3 (test code 0.35 10*3/uL 0.33-0.92 = 742-7) EOS x10^3 (test code = <0.03 0.03-0.39 L 711-2) BASO x10^3 (test code <0.03 0.01-0.07 = 704-7) DEANDREAUX (test code = Present See_Comment A [Auto mated 7797-4) message] The sy stem which generated this result transmitted reference range : (none). The reference range was not used to interpret this result as normal/abnormal . BANDS (test code = Increased A 9919212380) REACT LYMPHS (test Rare code = 1651318912) Lab Interpretation Abnormal (test code = 71570-6) [facility] [id number] 23:34:47 No radiographic cardiopulmonary disease. RL [id number] CHEST SINGLE VIEW CLINICAL HISTORY: Short of breath ORDERING PHYSICIAN: CHANTEL CABRERA TECHNIQUE: Frontal view of chest COMPARISON: None available. FINDINGS: The cardiac silhouette is within normal limits. ?Lungs are clear. Osseous structures are normal. [facility], Radiant Results Inft User - 11/13/2020 6:35 PM CDT CHEST SINGLE VIEWCLINICAL HISTORY: Short of breathORDERING PHYSICIAN: DAVE WALLS: Frontal view of chestCOMPARISON: None available.FINDINGS:The cardiac silhouette is within normal limits. Lungs are clear. Osseous structures are normal. IMPRESSIONNo radiographic cardiopulmonary disease.RL 4728 [facility] (NA, K, CL, CO2, GLUCOSE, BUN, CREATININE, CA)2020-11-13 23:16:41 Test Item Value Reference Range Interpretation Comments NA (test code = 137 mmol/L 135-145 9003461138) K (test code = 4.0 mmol/L 3.5-5.0 6454045461) CL (test code = 102 mmol/L 98-108 7879174081) CO2 TOTAL (test code 24 mmol/L 23-31 = 9551380473) AGAP (test code = 2-16 6333538436) BUN (test code = 9 mg/dL 7-23 4254614508) GLUCOSE (test code = 105 mg/dL 70-110 2571811015) CREATININE (test code 0.75 mg/dL 0.50-1.04 = 2055021554) CALCIUM (test code = 9.5 mg/dL 8.6-10.6 2238385759) eGFR (test code = mL/min/1.73m2 7936695365) GRAHAM (test code = GRAHAM) Association of Glomerular Filtration Rate (GFR) and Staging of Kidney Disease* + + +- +| GFR (mL/min/1.73 m2) ?| With Kidney Damage ?| ?Without Kidney Damage+ ------+ ----+ ------+| ?>90 ?| ?Stage one ?| ? Normal ?+ -+ + -+| ?60-89 ?| ?Stage two ?| ? Decreased GFR ? + + +- +| ?30-59 ?| ?Stage three ?| ? Stage three ? + + +- +| ?15-29 ?| ?Stage four ? | ? Stage four ?+ -+ + -+| ?<15 (or dialysis) ? ?| ?Stage five ? | ? Stage five ?+ -+ + -+ *Each stage assumes the associated GFR level has been in effect for at least three months. ?Stages 1 to 5, with or without kidney disease, indicate chronic kidney disease. Notes: Determination of stages one and two (with eGFR >59mL/min/1.73 m2) requires estimation of kidney damage for at least three months as defined by structural or functional abnormalities of the kidney, manifested by either:Pathological abnormalities or Markers of kidney damage (including abnormalities in the composition of the blood or urine or abnormalities in imaging tests). [facility] 23:08:10 Test Item Value Reference Range Interpretation Comments APPEARANCE (test code = Clear Clear 2652779534) COLOR (test code = Yellow Yellow 1621493380) PH (test code = 4.8-8.0 4170150132) SP GRAVITY (test code = 1.003-1.030 8991857366) GLU U QUAL (test code = Normal Normal 8548841911) BLOOD (test code = Negative Negative 0696319397) KETONES (test code = Negative Negative 5536364104) PROTEIN (test code = 30 mg/dL Negative A 2887-8) UROBILIN (test code = 4.0 mg/dL Normal A 9020694048) BILIRUBIN (test code = Negative Negative 8823815226) NITRITE (test code = Negative Negative 6622050076) LEUK PETER (test code = Negative Negative 0528578636) RBC/HPF (test code = See_Comment H [Autom ated message] 7816039711) The system whic h generated this result transmit alexandre reference range : 0 - 3 HPF. The refe rence range was not u sed to interpret th is result as normal/abnormal . WBC/HPF (test code = See_Comment [Autom ated message] 8878807007) The system [employer] generated this result transmit alexandre reference range : 0 - 5 HPF. The refe rence range was not u sed to interpret th is result as normal/abnormal . BACTERIA (test code = Few Negative A 3169993644) MUCOUS (test code = Slight Negative LPF A 3186979999) SQ EPITH (test code = HPF 3050010310) Lab Interpretation (test Abnormal code = 86038-8) [facility] [place] [facility] [id number] 22:46:00 Test Item Value Reference Range Interpretation Comments POCT PREG (test code = 1605) negative On board controls acceptable with present C Line (test code = 3574) POCT PREG LOT # (test code = 3575) [id number] POCT PREG TEST DATE (test 03-23-2021 code = 3576) Lab Interpretation (test code = Normal 05692-8) [facility]
--- NOTE | 2021-09-02 12:03 | EDPHYS ---
Physician Documentation [facility] Name: Christen Saxena Age: 25 yrs Sex: Female : 1995 Arrival Date: 09/02/2021 Time: 11:34 Bed 12 Private MD: ED Physician Yonatan Lama HPI: 09/02 11:56 This 25 yrs old Female presents to ER via Ambulatory with complaints of Jaw en Pain, Facial Swelling. 11:56 25-year-old female presents to ED with left upper tooth pain intermittently for a year en that became worse today. She reports increased pain and swelling over the left maxilla. She has pain opening her mouth but is able to open her mouth. No difficulty breathing or swallowing. No fevers, chills, nausea, vomiting.. 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 - Social history:: Smoking status: Patient denies any tobacco usage or history of. ROS: 11:56 Constitutional: Negative for fever, chills, and weight loss. en 11:56 ENT: Positive for Gum pain Teeth pain 11:56 Respiratory: Negative for shortness of breath. 11:56 All other systems are negative. Exam: 11:56 Constitutional: This is a well developed, well nourished patient who is awake, alert, en and in no acute distress. 11:56 Constitutional: The patient appears in no acute distress, alert, awake. 11:56 Head/face: Tooth 16 broke with adjacent swelling to the gums and tenderness to palpation. Mild swelling and tenderness to palpation over the adjacent maxilla. No trismus. She is able to open her mouth with pain. Airway patent. 11:56 Eyes: Conjunctiva: normal, no exudate, no injection. 11:56 ENT: See head and face exam. 11:56 Cardiovascular: Rate: normal, Rhythm: regular, Pulses: no pulse deficits are appreciated, Heart sounds: normal, no murmur, no rub, no gallop. 11:56 Respiratory: the patient does not display signs of respiratory distress, Respirations: normal, Breath sounds: are clear throughout, no rales, rhonchi, no stridor, no wheezing. 11:56 Musculoskeletal/extremity: ROM: intact in all extremities, full active range of motion. 11:56 Neuro: Orientation: is normal, no acute changes, to person, place \T\ time. Mentation: appropriate for stated age. 11:56 Psych: Behavior/mood is pleasant, cooperative, Affect is calm. Vital Signs: 11:49 BP 115 / 88; Pulse 86; Resp 16; Temp 99.1; Pulse Ox 98% on R/A; iw MDM: 11:56 Differential diagnosis: Dental infection versus abscess no airway compromise. Data en reviewed: vital signs, nurses notes, and as a result, I will discharge patient, administer antibiotics prescribe pain medication. ED course: Patient is calling to set up a dental appointment tomorrow. Will DC home with antibiotics and pain medication will give first dose prior to discharge because patient has to work tonight. She has a ride coming to get her home. ER return warnings were. 12:02 Patient medically screened. en 12:02 ED course: PDMP reviewed. en Administered Medications: 12:13 Drug: [place] (HYDROcodone-acetaminophen) (7.5 mg-325 mg) 1 tabs Route: PO; aa5 12:13 Follow up: Response: Medication administered at discharge. aa5 12:13 Drug: Clindamycin 300 mg Route: PO; aa5 12:13 Follow up: Response: Medication administered at discharge. aa5 Disposition: 13:24 Co-signature as Attending Physician, Yonatan Lama MD I agree with the assessment and kdr plan of care. Disposition Summary: 09/02/21 12:02 Discharge Ordered Location: Home en Problem: new en Symptoms: are unchanged en Condition: Stable en Diagnosis - Dental infection en Followup: en - With: Zion Camacho MD - When: 1 - 2 days - Reason: Discharge Instructions: - Discharge Summary Sheet en - Dental Pain, Jvnf-[id number] en Forms: - Medication Reconciliation Form en - Thank You Letter en - Antibiotic Education en - Prescription Opioid Use en Prescriptions: - Clindamycin HCl 300 mg Oral Capsule - take 1 capsule by ORAL route every 6 hours for 10 days; 40 capsule; Refills: 0, en Product Selection Permitted - Ultram 50 mg Oral Tablet - take 1 tablet by ORAL route every 6 hours As needed; 12 tablet; Refills: 0, en Product Selection Permitted Signatures: Yonatan Lama MD MD kdr Laurie Coppola RN RN iw Jennyfer Yoo RN RN aa5 Gertrude Boyer PA PA en Corrections: (The following items were deleted from the chart) 11:51 11:51 PMHx: Ovarian cyst; [facility]
--- NOTE | 2021-09-02 12:03 | ER ---
Nurse's Notes [facility] Name: Christen Saxena Age: 25 yrs Sex: Female : 1995 Arrival Date: 09/02/2021 Time: 11:34 Bed 12 Private MD: Diagnosis: Dental infection Presentation: 09/02 11:49 Chief complaint: Patient states: left cheek started to feel weird two days ago, now the iw left side of her face is swollen, has a broken tooth on top side X 1 year. Coronavirus screen: At this time, the client does not indicate any symptoms associated with coronavirus-19. Ebola Screen: Patient negative for fever greater than or equal to 101.5 degrees Fahrenheit, and additional compatible Ebola Virus Disease symptoms Patient denies exposure to infectious person. Patient denies travel to an Ebola-affected area in the 21 days before illness onset. No symptoms or risks identified at this time. Initial Sepsis Screen: Does the patient meet any 2 criteria? No. Patient's initial sepsis screen is negative. Does the patient have a suspected source of infection? No. Patient's initial sepsis screen is negative. Risk Assessment: Do you want to hurt yourself or someone else? Patient reports no desire to harm self or others. Onset of symptoms was September 02, 2021. 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 - Social history:: Smoking status: Patient denies any tobacco usage or history of. Assessment: 12:13 Reassessment: Patient is alert, oriented x 3, equal unlabored respirations, skin aa5 warm/dry/pink. Vital Signs: 11:49 BP 115 / 88; Pulse 86; Resp 16; Temp 99.1; Pulse Ox 98% on R/A; iw ED Course: 11:34 Patient arrived in ED. as 11:37 Gertrude Boyer PA is PHCP. en 11:37 Yonatan Lama MD is Attending Physician. en 11:51 Triage completed. iw 11:51 Laurie Coppola, RN is Primary Nurse. iw 12:01 Zion Camacho MD is Referral Physician. en 12:14 No provider procedures requiring assistance completed. Patient did not have IV access aa5 during this emergency room visit. Administered Medications: 12:13 Drug: [place] (HYDROcodone-acetaminophen) (7.5 mg-325 mg) 1 tabs Route: PO; aa5 12:13 Follow up: Response: Medication administered at discharge. aa5 12:13 Drug: Clindamycin 300 mg Route: PO; aa5 12:13 Follow up: Response: Medication administered at discharge. aa5 Outcome: 12:02 Discharge ordered by . en 12:14 Discharged to home ambulatory, with family. aa5 12:14 Condition: stable 12:14 Discharge instructions given to patient, Instructed on discharge instructions, follow up and referral plans. medication usage, Demonstrated understanding of instructions, follow-up care, medications, Prescriptions given X 2. 12:14 Patient left the ED. aa5 Signatures: Enma Escudero as aLurie Coppola, RN RN iw Jennyfer Yoo RN RN aa5 Gertrude Boyer PA PA en Corrections: (The following items were deleted from the chart) 11:51 11:51 PMHx: Ovarian cyst; iw iw
[2021-09-02] MEDS ORDERED: HYDROCODONE/APAP 7.5/325 MG TAB ONE (12:15)
[2021-09-02 12:19] VITALS: BP 115/88; TEMP 99.1; O2SAT 98
== END 2021-09-02 12:14 | disposition home or self-care (01) ==
LOC: ER 11:18
DX: K04.7 Periapical abscess without sinus (principal)
CPT/HCPCS: 99283

== ENCOUNTER 2022-01-06 11:31 | Emergency (ER) | payer SELFPAY ==
--- OUTSIDE RECORDS SUMMARY | 2022-01-06 11:34 | XMS REPORT | Continuity of Care Document ---
:1995 Author Organization [facility] t Address [address] [place] [address] Care Team Providers Name Role Phone PCP, PATIENT DOES NOT HAVE A Primary Care Physician Unavailsharee Francisco RN, Halina Attending Clinician Unavailable Dave Mccormick Attending Clinician DAVE CABRERA Attending Clinician Unavailable DAVE CABRERA Admitting Clinician Unavailable Payers Payer Name Policy Type Policy Number Effective Date Expiration Date S ource Problems Condition Condition Condition Status Onset Resolution Last Treating Co mments Source Name Details Category Date Date Treatment Clinician Date No known No known Disease Unive rs active active ity of problems problems [facility] Allergies, Adverse Reactions, Alerts Allergy Allergy Status Severity Reaction(s) Onset Inactive Treating Comm ents Source Name Type Date Date Clinician NO KNOWN Drug Active Univers ALLERGIE Class ity of S [facility] Social History Social Habit Start Date Stop Date Quantity Comments Source Exposure to Yes [facility] SARS-CoV-2 (event) Medica l Branch Sex Assigned At [birth year] [facility] 00:00:00 00:00:00 [facility] Smoking Status Start Date Stop Date Source Unknown if ever smoked [facility] Medications Ordered Filled Start Stop Current Ordering Indication Dosage Frequency Signature Comments Components Source Medication Medication Date Date Medication? Clinician (SIG) Name Name NaCl 0.9% 2020- No 500mL at 999 Univ ers (NS) bolus 8-24 08-24 mL/hr, 500 it y of infusion 03:15: 03:00 mL, IV [place] 500 mL 00 :00 Piggyback, [facility] ONCE, 1 [place] dose, [facility] 11/13/20 at 2215, STAT iopamidol 2020- No [id number] 100mL 100 mL, Univers (ISOVUE 11-14 Intravenou ity o f 370-500 mL) 01:41: 01:41 s, ONCE, 1 [place] injection 00 :00 dose, Mon Medic al 100 mL 11/13/20 at [place] 2100, Routine ibuprofen 2020- No 800mg 800 mg, Uni vers (IBU) 11-14 Oral, ity of tablet 800 01:00: 00:04 ONCE, 1 [place] mg 00 :00 dose, [facility] Medical 11/13/20 at [place] 1999, LYNETTE acetaminoph 2020- No 1000mg 1,000 mg, Univers en 11-14 Oral, ity of (TYLENOL) 01:00: 00:04 ONCE, 1 [place] tablet 00 :00 dose, [facility] 1,000 mg 11/13/20 at [facility] 1999, Routine NaCl 0.9% 2020- No 1000mL at 999 Uni vers (NS) bolus 11-13 mL/hr, ity of infusion 23:15: 01:25 1,000 mL, [place] as 1,000 mL 00 :00 IV Medical [facility] ONCE, 1 dose, [facility] 11/13/20 at 1815, STAT benzonatate Yes [id number] 100mg Take 1 Univers 100 mg 8-23 capsule by ity of capsule 00:00: mouth 3 [place] [address] (three) Medical times Branch daily as needed for Cough. albuterol Yes [id number] 2{puff} Inhale 2 Univers 90 8-23 Puffs ity of mcg/actuati 00:00: every 4 [place] as on inhaler 00 (four) Medical hours as Branch needed for Wheezing or Shortness of Breath. benzonatate Yes [id number] 100mg Take 1 Univers 100 mg 8-23 capsule by ity of capsule 00:00: mouth 3 [place] 00 (three) Medical times Branch daily as needed for Cough. albuterol Yes [id number] 2{puff} Inhale 2 Univers 90 8-23 Puffs ity of mcg/actuati 00:00: every 4 [place] as on inhaler 00 (four) Medical hours as Branch needed for Wheezing or Shortness of Breath. benzonatate Yes [id number] 100mg Take 1 Univers 100 mg 8-23 capsule by ity of capsule 00:00: mouth 3 [place] 00 (three) Medical times Branch daily as needed for Cough. albuterol Yes [id number] 2{puff} Inhale 2 Univers 90 8-23 Puffs ity of mcg/actuati 00:00: every 4 [place] as on inhaler 00 (four) Medical hours as Branch needed for Wheezing or Shortness of Breath. Vital Signs Vital Name Observation Time Observation Value Comments Source Systolic blood 2020-11-14 03:00:00 133 mm[Hg] [facility] Diastolic blood 2020-11-14 03:00:00 88 mm[Hg] [facility] Heart rate 2020-11-14 03:00:00 85 /min General acute hospital Body temperature 2020-11-14 03:00:00 36.67 [facility]elyn [facility] Respiratory rate 2020-11-14 03:00:00 18 /min [facility] Oxygen saturation in 2020-11-14 03:00:00 99 /min [facility] Arterial blood by [facility] Pulse oximetry [place] Body weight 2020-11-13 21:59:00 84.823 kg General acute hospital Procedures Procedure Date / Time Performed Performing Clinician Sour e CT CHEST PULMONARY 2020-11-14 01:46:07 Dave Cabrera [facility] ANGIOGRAM [facility] D-DIMER 2020-11-14 00:03:[address] [facility] BASIC METABOLIC PANEL 2020-11-13 22:46:00 Dave Cabrera [facility] (NA, K, CL, CO2, Medical Branch GLUCOSE, BUN, CREATININE, CA) CBC WITH DIFF 2020-11-13 22:46:[address] [facility] POCT TEST 2020-11-13 22:46:00 Dave Cabrera [facility] URINALYSIS 2020-11-13 22:40:[address] [facility] XR CHEST 1 VW 2020-11-13 22:36:[address] [facility] NOTICE OF PRIVACY 2020-11-13 21:48:44 Doctor Unassigned, No Univ [facility] PRACTICES Name Medical Branch Encounters Start End Encounter Admission Attending Care Care Encounter Source Date/Time Date/Time Type Type Clinicians Facility Department ID 2020-11-28 2020-11-28 Nurse Halina Francisco [id number] Univers 00:00:00 00:00:00 Triage MALLY [id number] it [facility] [id number] [place] as [id number] [facility] 019 Branch 2020-11-13 2020-11-13 Emergency [facility] [id number] Univers 17:00:00 22:28:00 [place] [id number] i ty [facility] [id number] [place] [id number] [facility] 084 Branch 2020-11-13 2020-11-13 Emergency X [facility] ERT [id number] Univers 17:00:00 22:28:00 [facility] Results Test Description Test Time Test Results Result Source Comments Comments CT CHEST 2020-10-23 Impression: No CTA Univer sity of PULMONARY 4 evidence for pulmonary [place] [facility] ANGIOGRAM 02:35:40 embolus. Minimal Branch patchy foci of ground glass nodularity in the lungs bilaterally,suggestive of multifocal pneumonia. RL: [id number] AFC: [id number] Ordering physician: DAVE CABRERA Indication: Chest pain, [...] the lungs bilaterally,suggestive of multifocal pneumonia.RL: [id number]: [id number] signed by Diane Mckenzie MD, PhD at 11/13/2020 9:35 PM D-DIMER 2020-11-14 00:43:58 Test Item Value Reference Range Interpretation Comme nts D-DIMER (test code = See_Comment H [Autom ated message] The [id number]) system which ge nerated this result tra nsmitted reference range [...] diagnosis. Lab Interpretation Abnormal (test code = 72081-4) [facility] WITH [id number] 23:43:37 Test Item Value Reference Range Interpretation Comments WBC (test code = See_Comment L [Automated 8719-2) message] The sy stem which generated this result transmitted reference range : 4.30 - 11.10 10*3/?L. The reference range was not used to interpret this result as normal/abnormal . RBC (test code = See_Comment [Automated 517-8) message] The sy stem which generated this [...] RDW-SD (test code = 39.6 fL 39.0-49.9 20043-4) RDW-CV (test code = 12.4 % 12.0-15.5 788-0) PLT (test code = See_Comment [Automated 987-3) message] The sy stem which generated this result transmitted reference range : 166 - 358 10*3/ ?L. The reference r [place] was not used to interpret this result as normal/abnormal . MPV (test code = 9.3 fL 9.5-12.9 L 15535-0) NRBC/100 WBC (test See_Comment [Automat ed code = 3615745189) message] The system which generated this result transmitted reference range : 0.0 - 10.0 /100 WBCs. The refer ence range was not u sed to interpret th is result as normal/abnormal . NRBC x10^3 (test code <0.01 See_Comment [Auto mated = 3980848793) message] The s ystem which generated this result transmitted reference range : 10*3/?L. The reference range was not used to interpret this result as normal/abnormal . GRAN MAT (NEUT) % 56.3 % (test code = 770-8) IMM GRAN % (test code 0.50 % = 4097800727) LYMPH % (test code = 33.0 % 736-9) MONO % (test code = 9.4 % 5905-5) EOS % (test code = 0.3 % 713-8) BASO % (test code = 0.5 % 706-2) GRAN MAT x10^3(ANC) 2.10 10*3/uL 1.88-7.09 (test code = 0174362453) IMM GRAN x10^3 (test <0.03 0.00-0.06 code = 4098528737) LYMPH x10^3 (test code 1.23 10*3/uL 1.32-3.29 L = 731-0) MONO x10^3 (test code 0.35 10*3/uL 0.33-0.92 = 742-7) EOS x10^3 (test code = <0.03 0.03-0.39 L 711-2) BASO x10^3 (test code <0.03 0.01-0.07 = 704-7) ROULEAUX (test code = Present See_Comment A [Auto mated 7797-4) message] The sy stem which generated this result transmitted reference range : (none). The reference range was not used to interpret this result as normal/abnormal . BANDS (test code = Increased A 1069228765) REACT LYMPHS (test Rare code = 5884807636) Lab Interpretation Abnormal (test code = 54730-5) [facility] [id number] 23:34:47 No radiographic cardiopulmonary disease. RL [id number] Electronically signed by Juan José Metz at 16:34 PMCHEST SINGLE VIEW CLINICAL HISTORY: Short of breath ORDERING PHYSICIAN: CHANTEL CABRERA TECHNIQUE: Frontal view of chest COMPARISON: None available. FINDINGS: The cardiac silhouette is within normal limits. ?Lungs are clear. Osseous structures are normal. [facility], Radiant Results Inft User - 11/13/2020 6:35 PM CDT CHEST SINGLE VIEWCLINICAL HISTORY: Short of breathORDERING PHYSICIAN: DAVE AHNIQUE: Frontal view of chestCOMPARISON: None available.FINDINGS:The cardiac silhouette is within normal limits. Lungs are clear. Osseous structures are normal. IMPRESSIONNo radiographic cardiopulmonary disease.RL [id number] [facility] (NA, K, CL, CO2, GLUCOSE, BUN, CREATININE, CA)2020-11-13 23:16:41 Test Item Value Reference Range Interpretation Comments NA (test code = 137 mmol/L 135-145 6210012215) K (test code = 4.0 mmol/L 3.5-5.0 7364046845) CL (test code = 102 mmol/L 98-108 6400886273) CO2 TOTAL (test code 24 mmol/L 23-31 = 1578973347) AGAP (test code = 2-16 1190853811) BUN (test code = 9 mg/dL 7-23 2118515555) GLUCOSE (test code = 105 mg/dL 70-110 4283382461) CREATININE (test code 0.75 mg/dL 0.50-1.04 = 4033713003) CALCIUM (test code = 9.5 mg/dL 8.6-10.6 5390834958) eGFR (test code = mL/min/1.73m2 3606607563) GRAHAM (test code = GRAHAM) Association of [...] or urine or abnormalities in imaging tests). [facility] [id number] 23:08:10 Test Item Value Reference Range Interpretation Comments APPEARANCE (test code = Clear Clear 7971191238) COLOR (test code = Yellow Yellow 2859222466) PH (test code = 4.8-8.0 4666713639) SP GRAVITY (test code = 1.003-1.030 6576828367) GLU U QUAL (test code = Normal Normal 2223616715) BLOOD (test code = Negative Negative 6757023181) KETONES (test code = Negative Negative 1125304037) PROTEIN (test code = 30 mg/dL Negative A 2887-8) UROBILIN (test code = 4.0 mg/dL Normal A 3614557643) BILIRUBIN (test code = Negative Negative 1022010094) NITRITE (test code = Negative Negative 2567753761) LEUK PETER (test code = Negative Negative 7960183610) RBC/HPF (test code = See_Comment H [Autom ated message] 1694380967) The system [employer] generated this result transmit alexandre reference range : 0 - 3 HPF. The refe rence range was not u sed to interpret th is result as normal/abnormal . WBC/HPF (test code = See_Comment [Autom ated message] 9094502590) The system [employer] generated this result transmit alexandre reference range : 0 - 5 HPF. The refe rence range was not u sed to interpret th is result as normal/abnormal . BACTERIA (test code = Few Negative A 3572822463) MUCOUS (test code = Slight Negative LPF A 0378705956) SQ EPITH (test code = HPF 9846294785) Lab Interpretation (test Abnormal code = 88221-3) [facility] [id number] 22:46:00 Test Item Value Reference Range Interpretation Comments POCT PREG (test code = 1605) negative On board controls acceptable with present C Line (test code = 3574) POCT PREG LOT # (test code = 3575) [id number] POCT PREG TEST DATE (test 03-23-2021 code = 3576) Lab Interpretation (test code = Normal 87189-2) [facility]
--- NOTE | 2022-01-06 13:01 | EDPHYS ---
Physician Documentation [facility] Name: Christen Saxena Age: 26 yrs Sex: Female : 1995 Arrival Date: 01/06/2022 Time: 11:36 Bed 15 Private MD: ED Physician Ruben Tejada HPI: 01/06 12:52 This 26 yrs old Female presents to ER via Ambulatory with complaints of Rash. ana 12:52 The patient's rash thought to be caused by insect bites, Dermatitis. The rash is ana located on the chest and left leg. The rash can be described as erythematous, patchy, raised. Onset: The symptoms/episode began/occurred 2 day(s) ago. Associated signs and symptoms: Pertinent positives: burning sensation, itching. Severity of symptoms: At their worst the symptoms were moderate today, in the emergency department the symptoms are unchanged despite home interventions. The patient has not experienced similar symptoms in the past. 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 - Social history:: Smoking status: Patient denies any tobacco usage or history of. Patient uses alcohol, occasionally. - Family history:: not pertinent. ROS: 12:52 Constitutional: Negative for fever, chills, and weight loss, Eyes: Negative for injury, ana pain, redness, and discharge, ENT: Negative for injury, pain, and discharge, Neck: Negative for injury, pain, and swelling, Cardiovascular: Negative for chest pain, palpitations, and edema, Respiratory: Negative for shortness of breath, cough, wheezing, and pleuritic chest pain, Abdomen/GI: Negative for abdominal pain, nausea, vomiting, diarrhea, and constipation, Back: Negative for injury and pain, : Negative for injury, bleeding, discharge, and swelling, Neuro: Negative for headache, weakness, numbness, tingling, and seizure, Psych: Negative for depression, anxiety, suicide ideation, homicidal ideation, and hallucinations, Allergy/Immunology: Negative for hives, rash, and allergies, Endocrine: Negative for neck swelling, polydipsia, polyuria, polyphagia, and marked weight changes, Hematologic/Lymphatic: Negative for swollen nodes, abnormal bleeding, and unusual bruising. 12:52 MS/extremity: Positive for abrasion, erythema, tenderness. 12:52 Skin: Positive for erythema, swelling, of the abdomen, right leg and left leg. Exam: 12:52 Constitutional: This is a well developed, well nourished patient who is awake, alert, ana and in no acute distress. Head/Face: Normocephalic, atraumatic. Eyes: Pupils equal round and reactive to light, extra-ocular motions intact. Lids and lashes normal. Conjunctiva and sclera are non-icteric and not injected. Cornea within normal limits. Periorbital areas with no swelling, redness, or edema. ENT: Nares patent. No nasal discharge, no septal abnormalities noted. Tympanic membranes are normal and external auditory canals are clear. Oropharynx with no redness, swelling, or masses, exudates, or evidence of obstruction, uvula midline. Mucous membranes moist. Neck: Trachea midline, no thyromegaly or masses palpated, and no cervical lymphadenopathy. Supple, full range of motion without nuchal rigidity, or vertebral point tenderness. No Meningismus. Chest/axilla: Normal chest wall appearance and motion. Nontender with no deformity. No lesions are appreciated. Cardiovascular: Regular rate and rhythm with a normal S1 and S2. No gallops, murmurs, or rubs. Normal PMI, no JVD. No pulse deficits. Respiratory: Lungs have equal breath sounds bilaterally, clear to auscultation and percussion. No rales, rhonchi or wheezes noted. No increased work of breathing, no retractions or nasal flaring. Abdomen/GI: Soft, non-tender, with normal bowel sounds. No distension or tympany. No guarding or rebound. No evidence of tenderness throughout. Back: No spinal tenderness. No costovertebral tenderness. Full range of motion. Neuro: Awake and alert, GCS 15, oriented to person, place, time, and situation. Cranial nerves II-XII grossly intact. Motor strength 5/5 in all extremities. Sensory grossly intact. Cerebellar exam normal. Normal gait. Psych: Awake, alert, with orientation to person, place and time. Behavior, mood, and affect are within normal limits. 12:52 Skin: lesion(s), noted, and can be described as erythematous, raised, tender. Vital Signs: 11:43 BP 122 / 88; Pulse 104; Resp 17; Temp 99.(TE); Pulse Ox 99% on R/A; tw2 13:15 BP 105 / 89; Pulse 91; Resp 16; Pulse Ox 100% ; db [place] Coma Score: 13:15 Eye Response: spontaneous(4). Verbal Response: oriented(5). Motor Response: obeys db commands(6). Total: 15. MDM: 11:39 Patient medically screened. ana 12:58 Differential diagnosis: impetigo, varicella, allergic reaction. Data reviewed: vital ana signs, nurses notes. Data interpreted: pvc monitor: rate is 104 beats/min, rhythm is regular, Pulse oximetry: on room air is 99 %. Counseling: I had a detailed discussion with the patient and/or guardian regarding: the historical points, exam findings, and any diagnostic results supporting the discharge/admit diagnosis, the need for outpatient follow up, for definitive care, a family practitioner. Administered Medications: 13:25 Drug: Benadryl (diphenhydrAMINE) 50 mg Route: PO; db 13:31 Follow up: Response: No adverse reaction db 13:25 Drug: Pepcid (famotidine) 40 mg Route: PO; db 13:31 Follow up: Response: No adverse reaction db 13:25 Drug: predniSONE 60 mg Route: PO; db 13:31 Follow up: Response: No adverse reaction db 13:25 Drug: Bactrim (trimethoprim-sulfamethoxazole) (160 mg-800 mg (DS) 1 tablet Route: PO; db 13:31 Follow up: Response: No adverse reaction db Disposition Summary: 01/06/22 13:00 Discharge Ordered Location: Home ana Problem: new ana Symptoms: have improved ana Condition: Stable ana Diagnosis - Dermatitis, unspecified ana - Urticaria, unspecified ana Followup: ana - With: Private Physician - When: 2 - 3 days - Reason: Recheck today's complaints, Continuance of care, Re-evaluation by your physician Discharge Instructions: - Discharge Summary Sheet ana - Hives ana - Rash, Adult ana - Hives, Ayhj-fa-Ljmd ana Forms: - Medication Reconciliation Form ana - Thank You Letter ana - Antibiotic Education ana - Prescription Opioid Use ana - Work release form eb Prescriptions: - Benadryl 25 mg Oral Capsule - take 2 capsule by ORAL route every 6 hours As needed; 55 tablet; Refills: 0, [facility] Product Selection Permitted - Pepcid 20 mg Oral Tablet - take 1 tablet by ORAL route every 12 hours for 10 days; 20 tablet; Refills: 0, [facility] Product Selection Permitted - Bactrim DS 800-160 mg Oral Tablet - take 1 tablet by ORAL route every 12 hours for 7 days; 14 tablet; Refills: 0, [facility] Product Selection Permitted - Prednisone 20 mg Oral Tablet - take 2 tablets by ORAL route once daily for 5 days; 10 tablet; Refills: 0, [facility] Product Selection Permitted Signatures: Ruben Tejada MD MD cha Wise, Tara RN RN tw2 Zoe Brantley RN RN db Corrections: (The following items were deleted from the chart) 11:47 11:46 PMHx: None; 2 tw2
--- NOTE | 2022-01-06 13:01 | ER ---
Nurse's Notes [facility] Name: Christen Saxena Age: 26 yrs Sex: Female : 1995 Arrival Date: 01/06/2022 Time: 11:36 Bed 15 Private MD: Diagnosis: Dermatitis, unspecified;Urticaria, unspecified Presentation: 01/06 11:43 Chief complaint: Patient states: i dont know what it is but it started on my stomach. i tw2 have tried ointment, oatmeal baths, and it started on my stomach but it has spread to thighs, chest, back, arms. started about 4 days ago. i also get a coughing fit that comes out of no where. the rash is itching me and irritating me. 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 Coronavirus screen: At this time, the client does not indicate any symptoms associated with coronavirus-19. Ebola Screen: Patient denies travel to an Ebola-affected area in the 21 days before illness onset. Initial Sepsis Screen: Does the patient meet any 2 criteria? No. Patient's initial sepsis screen is negative. Does the patient have a suspected source of infection? No. Patient's initial sepsis screen is negative. Risk Assessment: Do you want to hurt yourself or someone else? Patient reports no desire to harm self or others. Onset of symptoms was January 06, 2022. 11:43 Method Of Arrival: Ambulatory tw2 11:43 Acuity: JUAN R 4 tw2 Triage Assessment: 11:46 General: Appears in no apparent distress. well groomed, Behavior is calm, cooperative, tw2 appropriate for age. Pain: Denies pain. 11:47 Derm: Skin is intact, is healthy with good turgor, Rash noted that is macular, red, tw2 raised, on back, abdomen, right arm and left arm. 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 - Social history:: Smoking status: Patient denies any tobacco usage or history of. Patient uses alcohol, occasionally. - Family history:: not pertinent. Screenin:23 Abuse screen: Denies threats or abuse. Denies injuries from another. Nutritional db screening: No deficits noted. Tuberculosis screening: No symptoms or risk factors identified. Fall Risk None identified. No fall in past 12 months (0 pts). No secondary diagnosis (0 pts). No IV (0 pts). Ambulatory Aid- None/Bed Rest/Nurse Assist (0 pts). Gait- Normal/Bed Rest/Wheelchair (0 pts) Mental Status- Oriented to own ability (0 pts). Total Garces Fall Scale indicates No Risk (0-24 pts). Assessment: 12:05 Reassessment: Patient appears in no apparent distress at this time. No changes from db previously documented assessment. Patient and/or family updated on plan of care and expected duration. Pain level reassessed. Patient is alert, oriented x 3, equal unlabored respirations, skin warm/dry/pink. Patient denies pain at this time. General: Appears in no apparent distress. comfortable, Behavior is calm, cooperative, appropriate for age, quiet. Pain: Denies pain. Neuro: No deficits noted. Level of Consciousness is awake, alert, obeys commands, Oriented to person, place, time, situation, Appropriate for age Speech is normal, Facial symmetry appears normal. Cardiovascular: No deficits noted. Respiratory: No deficits noted. GI: No deficits noted. : No deficits noted. EENT: No deficits noted. Derm: Rash noted that is Rash on stomach and back. Musculoskeletal: No deficits noted. Vital Signs: 11:43 BP 122 / 88; Pulse 104; Resp 17; Temp 99.(TE); Pulse Ox 99% on R/A; tw2 13:15 BP 105 / 89; Pulse 91; Resp 16; Pulse Ox 100% ; db Jamison Coma Score: 13:15 Eye Response: spontaneous(4). Verbal Response: oriented(5). Motor Response: obeys db commands(6). Total: 15. ED Course: 11:36 Patient arrived in ED. ja2 11:39 Ruben Tejada MD is Attending Physician. ana 11:46 Triage completed. tw2 11:46 Arm band placed on. tw2 12:02 Zoe Brantley RN is Primary Nurse. db 13:34 Bed in low position. Pulse ox on. NIBP on. db 13:34 No provider procedures requiring assistance completed. IV discontinued. db Administered Medications: 13:25 Drug: Benadryl (diphenhydrAMINE) 50 mg Route: PO; db 13:31 Follow up: Response: No adverse reaction db 13:25 Drug: Pepcid (famotidine) 40 mg Route: PO; db 13:31 Follow up: Response: No adverse reaction db 13:25 Drug: predniSONE 60 mg Route: PO; db 13:31 Follow up: Response: No adverse reaction db 13:25 Drug: Bactrim (trimethoprim-sulfamethoxazole) (160 mg-800 mg (DS) 1 tablet Route: PO; db 13:31 Follow up: Response: No adverse reaction db Medication: 13:15 VIS not applicable for this client. db Outcome: 13:00 Discharge ordered by . ana 13:34 Discharged to home ambulatory. db 13:34 Condition: stable 13:34 Discharge instructions given to patient, Instructed on discharge instructions, follow up and referral plans. 13:35 Patient left the ED. db Signatures: Ruben Tejada MD MD cha Wise, Tara, RN RN tw2 Lanny Vann Danielle, RN RN db Corrections: (The following items were deleted from the chart) 11:47 11:46 PMHx: None; 2 2
[2022-01-06] MEDS ORDERED: predniSONE 20 MG TAB ONE (13:19)
[2022-01-06] MEDS ORDERED: SMZ./TMP. 800/160 MG TABLET ONE (13:19)
[2022-01-06] MEDS ORDERED: DIPHENHYDRAMINE 25 MG TAB/CAP ONE (13:19)
[2022-01-06] MEDS ORDERED: FAMOTIDINE 20 MG TAB ONE (13:19)
[2022-01-06 13:39] VITALS: TEMP 99
[2022-01-06 13:40] VITALS: BP 105/89; O2SAT 100
== END 2022-01-06 13:35 | disposition home or self-care (01) ==
LOC: ER 11:31
DX: L30.9 Dermatitis, unspecified (principal); L50.9 Urticaria, unspecified
CPT/HCPCS: 99283; J7512

== ENCOUNTER 2022-09-15 10:46 | Emergency (ER) | payer SELFPAY ==
--- OUTSIDE RECORDS SUMMARY | 2022-09-15 10:49 | XMS REPORT | Continuity of Care Document ---
:1995 Author Organization [facility] t Address [address] [place] [address] Care Team Providers Name Role Phone PCP, PATIENT DOES NOT HAVE A Primary Care Physician Unavaila CARLOS Polo Attending Clinician Unavailable Binh ADVERTISING SPACE CLERKCarlos Attending Clinician Halina Francisco RN Attending Clinician Unavailable Dave Mccormick Attending Clinician DAVE CABRERA Attending Clinician Unavailable CARLOS LOUISE Admitting Clinician Unavailable DAVE CABRERA Admitting Clinician Unavailable Payers Payer Name Policy Type Policy Number Effective Date Expiration Date S ource Problems Condition Condition Condition Status Onset Resolution Last Treating Co mments Source Name Details Category Date Date Treatment Clinician Date No known No known Disease Unive rs active active ity of problems problems [facility] Allergies, Adverse Reactions, Alerts Allergy Allergy Status Severity Reaction(s) Onset Inactive Treating Comm ents Source Name Type Date Date Clinician NO KNOWN Drug Active Univers ALLERGIE Class ity of S [facility] Social History Social Habit Start Date Stop Date Quantity Comments Source Exposure to 2022-02-19 2022-03-01 Not sure [facility] SARS-CoV-2 (event) 00:00:00 09:57:00 Medica l Branch Sex Assigned At [birth year] [facility] [place] [facility]:00:00 Medical Branch Smoking Status Start Date Stop Date Source Tobacco smoking consumption [facility] Medical unknown Branch Medications Ordered Filled Start Stop Current Ordering Indication Dosage Frequency Signature Comments Components Source Medication Medication Date Date Medication? Clinician (SIG) Name Name ondansetron 2021-03 No 4mg 4 mg, [facility] ers (ZOFRAN-ODT 05-02 Oral, ity of ) 17:45: 16:49 ONCE, 1 [place] disintegrat 00 :00 dose, On Medi michael ing tablet Fri Branch 4 mg 03/01/22 at 1145, Routine acetaminoph 2021-03 No 650mg 650 mg, U nivers en 05-02 Oral, ity of (TYLENOL) 16:45: 16:48 ONCE, 1 [place] tablet 650 00 :00 dose, On Medic al mg Fri Branch 03/01/22 at 1045, LYNETTE NaCl 0.9% 2020- No 500mL at 999 [facility] ers (NS) bolus 11-14-24 mL/hr, 500 it y of infusion 03:15: 03:00 mL, IV [place] 500 mL 00 :00 Piggyback, Medical ONCE, 1 [place] dose, [facility] 11/13/20 at 2215, STAT iopamidol 2020- No [id number] 100mL 100 mL, Univers (ISOVUE 11-14 Intravenou ity o f 370-500 mL) 01:41: 01:41 s, ONCE, 1 [place] injection 00 :00 dose, Mon Medic al 100 mL 11/13/20 at [place] 2100, Routine ibuprofen 2020- No 800mg 800 mg, Uni vers (IBU) 11-14 Oral, ity of tablet 800 01:00: 00:04 ONCE, 1 [place] as mg 00 :00 dose, Mon Medical 11/13/20 at [place] 2000, LYNETTE acetaminoph 2020- No 1000mg 1,000 mg, Univers en 11-14 Oral, ity of (TYLENOL) 01:00: 00:04 ONCE, 1 [place] tablet 00 :00 dose, Mon Medical 1,000 mg 11/13/20 at [facility] 2000, Routine NaCl 0.9% 2020- No 1000mL at 999 Uni vers (NS) bolus 11-13-24 mL/hr, ity of infusion 23:15: 01:25 1,000 mL, [place] as 1,000 mL 00 :00 IV Medical Piggyback, Branch ONCE, 1 dose, 11/13/20 at 1815, STAT benzonatate 2020-0 Yes [id number] 100mg Take 1 Univers 100 mg 8-23 capsule by ity of capsule 00:00: mouth 3 (three) Medical times Branch daily as needed for Cough. albuterol 2020-0 Yes [id number] 2{puff} Inhale 2 Univers 90 8-23 Puffs ity of mcg/actuati 00:00: every 4 [place] as on inhaler 00 (four) Medical hours as Branch needed for Wheezing or Shortness of Breath. benzonatate 2020-0 Yes [id number] 100mg Take 1 Univers 100 mg 8-23 capsule by ity of capsule 00:00: mouth 3 (three) Medical times Branch daily as needed for Cough. albuterol 2020-0 Yes [id number] 2{puff} Inhale 2 Univers 90 8-23 Puffs ity of mcg/actuati 00:00: every 4 [place] as on inhaler 00 (four) Medical hours as Branch needed for Wheezing or Shortness of Breath. benzonatate 2020-0 Yes [id number] 100mg Take 1 Univers 100 mg 8-23 capsule by ity of capsule 00:00: mouth 3 (three) Medical times Branch daily as needed for Cough. albuterol 2020-0 Yes [id number] 2{puff} Inhale 2 Univers 90 8-23 Puffs ity of mcg/actuati 00:00: every 4 [place] as on inhaler 00 (four) Medical hours as Branch needed for Wheezing or Shortness of Breath. benzonatate 2020-0 Yes [id number] 100mg Take 1 Univers 100 mg 8-23 capsule by ity of capsule 00:00: mouth 3 (three) Medical times Branch daily as needed for Cough. albuterol 2020-0 Yes [id number] 2{puff} Inhale 2 Univers 90 8-23 Puffs ity of mcg/actuati 00:00: every 4 Kvng as on inhaler 00 (four) Medical hours as Branch needed for Wheezing or Shortness of Breath. Immunizations Ordered Filled Immunization Date Status Comments [facility] e Immunization Name Name Td 2022-03-01 Completed University 00:00:00 [facility] Vital Signs Vital Name Observation Time Observation Value Comments Source Systolic blood 2022-03-01 15:58:00 135 mm[Hg] Univer sity of pressure [facility] Diastolic blood 2022-03-01 15:58:00 97 mm[Hg] Unive rsity of pressure [facility] Heart rate 2022-03-01 15:58:00 80 /min Universi ty [facility] [place] Medical [place] Body temperature 2022-03-01 15:58:00 36.72 Roselyn [facility] Respiratory rate 2022-03-01 15:58:00 18 /min [facility] Body height 2022-03-01 15:58:00 157.5 cm [facility] Body weight 2022-03-01 15:58:00 77.111 kg [facility] BMI 2022-03-01 15:58:00 31.09 kg/m2 [facility] Oxygen saturation in 2022-03-01 15:58:00 100 /min University of Arterial blood by [facility] Pulse oximetry Branch Systolic blood 2020-11-14 03:00:00 133 mm[Hg] Univer sity of pressure [facility] Diastolic blood 2020-11-14 03:00:00 88 mm[Hg] Unive rsity of pressure [facility] Heart rate 2020-11-14 03:00:00 85 /min Universi [facility] Medical [place] Body temperature 2020-11-14 03:00:00 36.67 Roselyn [facility] Respiratory rate 2020-11-14 03:00:00 18 /min [facility] Oxygen saturation in 2020-11-14 03:00:00 99 /min University of Arterial blood by [facility] Pulse oximetry Branch Body weight 2020-11-13 21:59:00 84.823 kg [facility] Procedures Procedure Date / Time Performed Performing Clinician Navi henderson ED LACERATION REPAIR 2022-03-01 17:14:18 Carlos Louise [facility]AST 2022-03-01 17:02:05 Carlos Louise [facility] CONSENT/REFUSAL FOR 2022-03-01 15:46:58 Doctor Unassigned, No [facility] DIAGNOSIS AND Name Medical Branch TREATMENT CT CHEST PULMONARY 2020-11-14 01:46:07 Dave Cabrera [facility] ANGIOGRAM [facility] Branch D-DIMER 2020-11-14 00:03:[address] [facility] BASIC METABOLIC PANEL 2020-11-13 22:46:00 Dave Cabrera [facility] (NA, K, CL, CO2, Medical Branch GLUCOSE, BUN, CREATININE, CA) CBC WITH DIFF 2020-11-13 22:46:00 [facility] 2020-11-13 22:46:00 Dave Cabrera [facility] URINALYSIS 2020-11-13 22:40:00 [facility]ST 1 VW 2020-11-13 22:36:52 [facility] NOTICE OF PRIVACY 2020-11-13 21:48:44 Doctor Unassigned, No [facility] PRACTICES Name [facility] Encounters Start End Encounter Admission Attending Care Care Encounter Source Date/Time Date/Time Type Type Clinicians Facility Department ID 2022-03-01 2022-03-01 Emergency X [facility] ERT [id number] Univers 09:59:00 12:05:00 CARLOS paola [facility] 2022-03-01 2022-03-01 [facility] [id number] Univers 09:59:00 12:05:00 Carlos MAC [id number] ity [facility] [id number] [facility] [id number] [facility] 084 Branch 2020-11-28 2020-11-28 Nurse Halina Francisco [id number] Univers 00:00:00 00:00:00 Triage MALLY [id number] it y of [facility] [id number] Kvng [id number] [facility] 019 Branch 2020-11-13 2020-11-13 Emergency Cabrera, [facility] [id number] Univers 17:00:00 22:28:00 Dave Mac [id number] i ty of [place] [id number] [facility] [id number] [facility] 084 Branch 2020-11-13 2020-11-13 Emergency X RICK, [facility] ERT [id number] Univers 17:00:00 22:28:00 DAVE ity of [facility] Results Test Description Test Time Test Results Result Source Comments Comments CT CHEST 2020-10-23 Impression: No CTA Univer sity of PULMONARY 4 evidence for pulmonary [place] [facility] ANGIOGRAM 02:35:40 embolus. Minimal Branch patchy foci of ground glass nodularity in the lungs bilaterally,suggestive of multifocal pneumonia. RL: [id number] AFC: [id number] Ordering physician: DAVE CABRERA Indication: Chest pain, [...] the chest demonstrate no osseous destructive lesion. [facility], Radiant Results Inft User - 11/13/2020 9:36 [...] in the lungs bilaterally,suggestive of multifocal pneumonia.RL: [id number]: [id number] signed by Diane Mckenzie MD, PhD at 11/13/2020 9:35 PM D-DIMER 2020-11-14 00:43:58 Test Item Value Reference Range Interpretation Comme nts D-DIMER (test code = See_Comment H [Autom ated message] The [id number]) system which Lalalama nerated this result tra nsmitted reference range [...] diagnosis. Lab Interpretation Abnormal (test code = 84543-2) [facility] WITH [id number] 23:43:37 Test Item Value Reference Range Interpretation Comments WBC (test code = See_Comment L [Automated 6690-2) message] The sy stem which generated this result transmitted reference range : 4.30 - 11.10 10*3/?L. The reference range was not used to interpret this result as normal/abnormal . RBC (test code = See_Comment [Automated 789-8) message] The sy stem which generated this [...] RDW-SD (test code = 39.6 fL 39.0-49.9 08653-5) RDW-CV (test code = 12.4 % 12.0-15.5 788-0) PLT (test code = See_Comment [Automated 777-3) message] The sy stem which generated this result transmitted reference range : 166 - 358 10*3/ ?L. The reference r [place] was not used to interpret this result as normal/abnormal . MPV (test code = 9.3 fL 9.5-12.9 L 35547-5) NRBC/100 WBC (test See_Comment [Automat ed code = 9520935857) message] The system which generated this result transmitted reference range : 0.0 - 10.0 /100 WBCs. The refer ence range was not u sed to interpret th is result as normal/abnormal . NRBC x10^3 (test code <0.01 See_Comment [Auto mated = 3059103365) message] The s ystem which generated this result transmitted reference range : 10*3/?L. The reference range was not used to interpret this result as normal/abnormal . GRAN MAT (NEUT) % 56.3 % (test code = 770-8) IMM GRAN % (test code 0.50 % = 7509536481) LYMPH % (test code = 33.0 % 736-9) MONO % (test code = 9.4 % 5905-5) EOS % (test code = 0.3 % 713-8) BASO % (test code = 0.5 % 706-2) GRAN MAT x10^3(ANC) 2.10 10*3/uL 1.88-7.09 (test code = 7800340770) IMM GRAN x10^3 (test <0.03 0.00-0.06 code = 2486642271) LYMPH x10^3 (test code 1.23 10*3/uL 1.32-3.29 L = 731-0) MONO x10^3 (test code 0.35 10*3/uL 0.33-0.92 = 742-7) EOS x10^3 (test code = <0.03 0.03-0.39 L 711-2) BASO x10^3 (test code <0.03 0.01-0.07 = 704-7) TIM (test code = Present See_Comment A [Auto mated 7797-4) message] The ioBridge stem which generated this result transmitted reference range : (none). The reference range was not used to interpret this result as normal/abnormal . BANDS (test code = Increased A 8913756709) REACT LYMPHS (test Rare code = 4188675713) Lab Interpretation Abnormal (test code = 82198-0) [facility] [id number] 23:34:47 No radiographic cardiopulmonary disease. RL [id number] Electronically signed by Juan José Metz at 16:34 PMCHEST SINGLE VIEW CLINICAL HISTORY: Short of breath ORDERING PHYSICIAN: CHANTEL CABRERA TECHNIQUE: Frontal view of chest COMPARISON: None available. FINDINGS: The cardiac silhouette is within normal limits. ?Lungs are clear. Osseous structures are normal. [facility], Radiant Results Inft User - 11/13/2020 6:35 PM CDT CHEST SINGLE VIEWCLINICAL HISTORY: Short of breathORDERING PHYSICIAN: DAVE WALLS: Frontal view of chestCOMPARISON: None available.FINDINGS:The cardiac silhouette is within normal limits. Lungs are clear. Osseous structures are normal. IMPRESSIONNo radiographic cardiopulmonary disease.RL [facility] METABOLIC PANEL (NA, K, CL, CO2, GLUCOSE, BUN, CREATININE, CA)2020-11-13 23:16:41 Test Item Value Reference Range Interpretation Comments NA (test code = 137 mmol/L 135-145 9354320691) K (test code = 4.0 mmol/L 3.5-5.0 2853612071) CL (test code = 102 mmol/L 98-108 7444164395) CO2 TOTAL (test code 24 mmol/L 23-31 = 5293416148) AGAP (test code = 2-16 9131423101) BUN (test code = 9 mg/dL 7-23 2366899148) GLUCOSE (test code = 105 mg/dL 70-110 1247495980) CREATININE (test code 0.75 mg/dL 0.50-1.04 = 2716082250) CALCIUM (test code = 9.5 mg/dL 8.6-10.6 2202033397) eGFR (test code = mL/min/1.73m2 5037854474) GRAHAM (test code = GRAHAM) Association of [...] or urine or abnormalities in imaging tests). [facility] 23:08:10 Test Item Value Reference Range Interpretation Comments APPEARANCE (test code = Clear Clear 7277426228) COLOR (test code = Yellow Yellow 5044078894) PH (test code = 4.8-8.0 4349432995) SP GRAVITY (test code = 1.003-1.030 1123108408) GLU U QUAL (test code = Normal Normal 9496939772) BLOOD (test code = Negative Negative 2839399152) KETONES (test code = Negative Negative 6482368752) PROTEIN (test code = 30 mg/dL Negative A 2887-8) UROBILIN (test code = 4.0 mg/dL Normal A 8096636653) BILIRUBIN (test code = Negative Negative 4382943368) NITRITE (test code = Negative Negative 2898659781) LEUK PETER (test code = Negative Negative 4577539187) RBC/HPF (test code = See_Comment H [Autom ated message] 9679271179) The system [employer] generated this result transmit alexandre reference range : 0 - 3 HPF. The refe rence range was not u sed to interpret th is result as normal/abnormal . WBC/HPF (test code = See_Comment [Autom ated message] 7985973306) The system [employer] generated this result transmit alexandre reference range : 0 - 5 HPF. The refe rence range was not u sed to interpret th is result as normal/abnormal . BACTERIA (test code = Few Negative A 8673452007) MUCOUS (test code = Slight Negative LPF A 6059906505) SQ EPITH (test code = HPF 2692333299) Lab Interpretation (test Abnormal code = 77796-2) [facility] [id number] 22:46:00 Test Item Value Reference Range Interpretation Comments POCT PREG (test code = 1605) negative On board controls acceptable with present C Line (test code = 3574) POCT PREG LOT # (test code = 3575) [id number] POCT PREG TEST DATE (test 03-23-2021 code = 3576) Lab Interpretation (test code = Normal 76177-5) [facility]
--- NOTE | 2022-09-15 11:25 | ER ---
Nurse's Notes [facility] Name: Christen Saxena Age: 26 yrs Sex: Female : 1995 Arrival Date: 09/15/2022 Time: 10:46 Bed 16 Private MD: Diagnosis: Irritant contact dermatitis due to plants, except food Presentation: 09/15 11:12 Chief complaint: Chief complaint: Patient states: "I was this rash all over from poison aa5 [place] that I got at work about 4 days ago and it just keeps spreading". 11:12 Onset of symptoms was August 2022. aa5 11:12 Acuity: JUAN R 4 aa5 11:12 Method Of Arrival: Ambulatory aa5 11:12 Coronavirus screen: At this time, the client does not indicate any symptoms associated aa5 with coronavirus-19. Ebola Screen: Patient denies travel to an Ebola-affected area in the 21 days before illness onset. Initial Sepsis Screen: Does the patient meet any 2 criteria? No. Patient's initial sepsis screen is negative. Does the patient have a suspected source of infection? No. Patient's initial sepsis screen is negative. Risk Assessment: Do you want to hurt yourself or someone else? Patient reports no desire to harm self or others. Triage Assessment: 11:20 General: Appears in no apparent distress. comfortable, Behavior is calm, cooperative. db Pain: Denies pain. FIELD CONTACT TECHNICIAN: 11:15 LMP 09/04/2022 aa5 Historical: - Allergies: 11:12 No Known Allergies; aa5 - PMHx: 11:12 Hypertensive disorder; aa5 - PSHx: 11:12 section; aa5 - Immunization history:: Adult Immunizations unknown. - Social history:: Smoking status: Patient denies any tobacco usage or history of. Screenin:07 [facility] ED Fall Risk Assessment (Adult) History of falling in the last 3 months, db including since admission No falls in past 3 months (0 pts) Confusion or Disorientation No (0 pts) Intoxicated or Sedated No (0 pts) Impaired Gait No (0 pts) Mobility Assist Device Used No (0 pt) Altered Elimination No (0 pt) Score/Fall Risk Level 0 - 2 = Low Risk Oriented to surroundings, Maintained a safe environment. Abuse screen: Denies threats or abuse. Denies injuries from another. Nutritional screening: No deficits noted. Tuberculosis screening: No symptoms or risk factors identified. Assessment: 11:30 Reassessment: Patient appears in no apparent distress at this time. Patient and/or db family updated on plan of care and expected duration. Pain level reassessed. Patient is alert, oriented x 3, equal unlabored respirations, skin warm/dry/pink. RASH ALL OVER TORSO. General: Appears in no apparent distress. comfortable, Behavior is calm, cooperative. Neuro: Level of Consciousness is awake, alert, obeys commands, Oriented to person, place, time, situation, Speech is normal. Vital Signs: 11:12 BP 121 / 84; Pulse 87; Resp 16 S; Temp 98.7(O); Pulse Ox 97% on R/A; aa5 11:55 BP 111 / 89; Pulse 84; Resp 16; Pulse Ox 99% on R/A; db ED Course: 10:50 Patient arrived in ED. im 11:00 Yvette Meyer FNP-C is [facility]. snw 11:00 Ruben Tejada MD is Attending Physician. snw 11:12 Arm band placed on. aa5 11:15 Triage completed. aa5 11:29 Zoe Brantley, RN is Primary Nurse. db 11:55 Patient has correct armband on for positive identification. Call light in reach. Side db rails up X 1. 11:55 No provider procedures requiring assistance completed. Patient did not have IV access db during this emergency room visit. Administered Medications: 11:45 Drug: predniSONE PO 40 mg Route: PO; db 12:07 Follow up: Response: No adverse reaction db 11:45 Drug: Famotidine PO 20 mg Route: PO; db 12:07 Follow up: Response: No adverse reaction db 11:45 Drug: ZyrTEC - Cetirizine PO 10 mg Route: PO; db 12:07 Follow up: Response: No adverse reaction db Medication: 11:55 VIS not applicable for this client. db Outcome: 11:25 Discharge ordered by . snw 11:55 Discharged to home ambulatory. db 11:55 Condition: stable 11:55 Discharge instructions given to patient, Instructed on discharge instructions, follow up and referral plans. Demonstrated understanding of instructions, Prescriptions given X 3. 12:08 Patient left the ED. db Signatures: Yvette Meyer FNP-C WASHERY BOSS-Csnw Jennyfer Yoo, RN RN aa5 Zoe Brantley, RN RN db Susan Waite
--- NOTE | 2022-09-15 11:25 | EDPHYS ---
Physician Documentation [facility] Name: Christen Saxena Age: 26 yrs Sex: Female : 1995 Arrival Date: 09/15/2022 Time: 10:46 Bed 16 Private MD: ED Physician Ruben Tejada HPI: 09/15 11:29 This 26 yrs old Female presents to ER via Ambulatory with complaints of snw Itching. 11:29 Onset: The symptoms/episode began/occurred acutely, 3 day(s) ago, and became snw persistent. Associated signs and symptoms: Pertinent positives: rash, itch. It is unknown whether or not the patient has recently seen a physician. 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 - Social history:: Smoking status: Patient denies any tobacco usage or history of. ROS: 11:29 Constitutional: Negative for fever, chills, and weight loss, Eyes: Negative for injury, snw pain, redness, and discharge, ENT: Negative for injury, pain, and discharge, Neck: Negative for injury, pain, and swelling, Cardiovascular: Negative for chest pain, palpitations, and edema, Respiratory: Negative for shortness of breath, cough, wheezing, and pleuritic chest pain, Abdomen/GI: Negative for abdominal pain, nausea, vomiting, diarrhea, and constipation, Back: Negative for injury and pain, : Negative for injury, bleeding, discharge, and swelling, MS/Extremity: Negative for injury and deformity, Neuro: Negative for headache, weakness, numbness, tingling, and seizure, Psych: Negative for depression, anxiety, suicide ideation, homicidal ideation, and hallucinations. 11:29 Skin: Positive for rash, diffusely. Exam: 11:28 Constitutional: This is a well developed, well nourished patient who is awake, alert, snw and in no acute distress. Head/Face: Normocephalic, atraumatic. Eyes: Pupils equal round and reactive to light, extra-ocular motions intact. Lids and lashes normal. Conjunctiva and sclera are non-icteric and not injected. Cornea within normal limits. Periorbital areas with no swelling, redness, or edema. ENT: Nares patent. No nasal discharge, no septal abnormalities noted. Tympanic membranes are normal and external auditory canals are clear. Oropharynx with no redness, swelling, or masses, exudates, or evidence of obstruction, uvula midline. Mucous membranes moist. Neck: Trachea midline, no thyromegaly or masses palpated, and no cervical lymphadenopathy. Supple, full range of motion without nuchal rigidity, or vertebral point tenderness. No Meningismus. Chest/axilla: Normal chest wall appearance and motion. Nontender with no deformity. No lesions are appreciated. Cardiovascular: Regular rate and rhythm with a normal S1 and S2. No gallops, murmurs, or rubs. Normal PMI, no JVD. No pulse deficits. Respiratory: Lungs have equal breath sounds bilaterally, clear to auscultation and percussion. No rales, rhonchi or wheezes noted. No increased work of breathing, no retractions or nasal flaring. Abdomen/GI: Soft, non-tender, with normal bowel sounds. No distension or tympany. No guarding or rebound. No evidence of tenderness throughout. Back: No spinal tenderness. No costovertebral tenderness. Full range of motion. MS/ Extremity: Pulses equal, no cyanosis. Neurovascular intact. Full, normal range of motion. Neuro: Awake and alert, GCS 15, oriented to person, place, time, and situation. Cranial nerves II-XII grossly intact. Motor strength 5/5 in all extremities. Sensory grossly intact. Cerebellar exam normal. Normal gait. Psych: Awake, alert, with orientation to person, place and time. Behavior, mood, and affect are within normal limits. 11:28 Skin: Appearance: normal except for affected area, consistent with contact dermatitis, on the face, scalp, back and abdomen. Vital Signs: 11:12 BP 121 / 84; Pulse 87; Resp 16 S; Temp 98.7(O); Pulse Ox 97% on R/A; aa5 11:55 BP 111 / 89; Pulse 84; Resp 16; Pulse Ox 99% on R/A; db MDM: 11:12 Patient medically screened. snw 11:28 Differential diagnosis: viral Infection, bacterial infection, contact dermatitis. Data snw reviewed: vital signs, nurses notes. Counseling: I had a detailed discussion with the patient and/or guardian regarding: the historical points, exam findings, and any diagnostic results supporting the discharge/admit diagnosis, the presence of at least one elevated blood pressure reading (>120/80) during this emergency department visit, the need for outpatient follow up, for definitive care, to return to the emergency department if symptoms worsen or persist or if there are any questions or concerns that arise at home. Special discussion: Based on the history and exam findings, there is no indication for further emergent testing or inpatient evaluation. I discussed with the patient/guardian the need to see the electronic service technician for further evaluation of the symptoms. I discussed with the patient/guardian the need to see the primary care provider for further evaluation of the symptoms. Administered Medications: 11:45 Drug: predniSONE PO 40 mg Route: PO; db 12:07 Follow up: Response: No adverse reaction db 11:45 Drug: Famotidine PO 20 mg Route: PO; db 12:07 Follow up: Response: No adverse reaction db 11:45 Drug: ZyrTEC - Cetirizine PO 10 mg Route: PO; db 12:07 Follow up: Response: No adverse reaction db Disposition Summary: 09/15/22 11:25 Discharge Ordered Location: Home snw Condition: Stable snw Diagnosis - Irritant contact dermatitis due to plants, except food snw Followup: snw - With: Emergency Department - When: As needed - Reason: Worsening of condition Followup: snw - With: Private Physician - When: 5 - 6 days - Reason: Recheck today's complaints, Continuance of care, Re-evaluation by your physician Discharge Instructions: - Discharge Summary Sheet snw - Contact Dermatitis snw Forms: - Work release form snw - Medication Reconciliation Form snw - Thank You Letter snw - Antibiotic Education snw - Prescription Opioid Use snw Prescriptions: - Zyrtec 10 mg Oral Tablet - take 1 tablet by ORAL route once daily As needed; 20 tablet; Refills: 0, snw Product Selection Permitted - Prednisone 20 mg Oral Tablet - take 2 tablets by ORAL route once daily for 5 days; 10 tablet; Refills: 0, snw Product Selection Permitted - Pepcid 20 mg Oral Tablet - take 1 tablet by ORAL route once daily; 20 tablet; Refills: 0, Product snw Selection Permitted Signatures: Betsy, Yvette, MAT WEAVER-C MAT WEAVER-Csnw Jennyfer Yoo, RN RN aa5 Zoe Brantley, RN RN db
[2022-09-15] MEDS ORDERED: CETIRIZINE HCL 5 MG TABLET ONE (11:45)
[2022-09-15] MEDS ORDERED: predniSONE 20 MG TAB ONE (11:45)
[2022-09-15] MEDS ORDERED: FAMOTIDINE 20 MG TAB ONE (11:45)
[2022-09-15 12:37] VITALS: TEMP 98.7
[2022-09-15 12:38] VITALS: BP 111/89; O2SAT 99
== END 2022-09-15 12:08 | disposition home or self-care (01) ==
LOC: ER 10:46
DX: L24.7 Irritant contact dermatitis due to plants, except food (principal)
CPT/HCPCS: 99283; J7512

== ENCOUNTER 2024-07-25 21:33 | Emergency (ER) | payer SELFPAY ==
[2024-07-25] MEDS ORDERED: ONDANSETRON 4 MG/2 ML VIAL ONE (22:36)
[2024-07-25] MEDS ORDERED: MORPHINE 4 MG/ML SYR ONE (22:39)
[2024-07-25 22:50] LABS: Specific Gravity 1.014 (1.005-1.030)
[2024-07-25 22:51] LABS: Specific Gravity 1.014 (1.005-1.030); Sqamous Epithelial <5 /HPF (None Seen); Urine Bacteria <20 /HPF (<20); Urine Bilirubin NEGATIVE (Negative); Urine Blood 3+ (OVER) (Negative); Urine Clarity Turbid (Clear); Urine Color Light-Yellow (Yellow); Urine Crystals Unidentified Few /HPF (None Seen); Urine Glucose NEGATIVE (Negative); Urine Ketones NEGATIVE (Negative); Urine Micro Reflex YN NO BILL MICROSCOPIC; Urine Mucus Slight /HPF (None Seen); Urine Nitrite NEGATIVE (Negative); Urine Protein NEGATIVE (Negative); Urine RBC >50 /HPF (None Seen); Urine Urobilinogen Normal (Normal); Urine WBC <5 /HPF (<5)
[2024-07-25 22:53] LABS: Absolute Basophils 0.1 K/uL (0-0.5); Absolute Eosinophils 0.2 K/uL (0-0.5); Absolute Lymphocytes (CBC) 3.3 K/uL (0.7-4.9); Absolute Monocytes 0.8 K/uL (0.1-1.3); Absolute Neutrophil 4.7 K/uL (1.8-8.0); Basophils % 0.7 % (0-1.3); Eosinophils % 2.1 % (0-4.4); Hematocrit 37.3 % (36.0-45.0); Hemoglobin 13.2 g/dL (12.0-15.0); Lymphocytes % 36.1 % (15.3-44.8); MCH 30.5 pg (27.0-35.0); MCHC 35.5 g/dL (32.0-36.0); MCV 85.9 fL (80-100); MPV 7.4 fL (7.6-11.3); Monocytes % 9.2 % (3.3-12.3); Neutrophils % 51.9 % (41.7-73.7); Nucleated Red Blood Cells % 0.3 % (0-0); Platelets 299 thou/uL (152-406); RBC Red Blood Cell Count 4.34 M/uL (3.86-4.86); Red Cell Distribution Width 12.8 % (12.1-15.2)
[2024-07-25 23:01] LABS: Albumin 3.7 g/dL (3.4-5.0); Anion Gap 9.7 mEq/L (5.0-15.0); Bilirubin Total 0.3 mg/dL (0.2-1.0); Globulin 3.7 g/dL (2.3-3.5); Potassium 3.7 mEq/L (3.5-5.1); Protein, Total 7.4 g/dL (6.4-8.2)
--- NOTE | 2024-07-26 00:39 | RAD REPORT ---
EXAM: CT ABDOMEN AND PELVIS WITH CONTRAST DATE: 07/25/2024 11:06 PM CDT INDICATION: 28-year-old female with abdominal pain. COMPARISON: CT of the abdomen 09/27/2019 TECHNIQUE: CT of the abdomen and pelvis acquired following the intravenous administration of contrast . Please see technologist documentation of contrast type and dosage. Axial, coronal and sagittal images are provided. The study was performed using dose reduction techniques including automated expo sure control and/or adjustment of the MA and/or KV according to patient size, and/or iterative reconstruction techniques. DLP: 1101.8. CTDI: 19.684. FINDINGS: Lower thorax: Mild bibasilar subsegmental atelectasis. No consolidation or pleural effusion. Partiall y visualized heart is normal in size. Liver, spleen, pancreas, adrenals, kidneys and ureters: No acute lesion. No nephrolithiasis or hydron ephrosis. Biliary tree: No intra- or extrahepatic bile duct dilation. Gallbladder: No calcified cholelithiasis or pericholecystic inflammation. Bladder/reproductive organs: No urinary bladder lesion. Anteverted uterus in situ containing T-shaped IUD in good position. 2.7 cm right ovarian cyst. No follow-up imaging is recommended. Reference: JACR 2019;17(2):248-254 Gastrointestinal tract: Lower esophagus/stomach/small bowel: Stomach is partially decompressed and contains heterogeneous mat erial and fluid within the stomach, presumably due to ingested material. Colon: Mild scattered colonic diverticula, with mild to moderate retained colonic stool. No diverticu litis. Appendix: Normal diameter partially gas-filled appendix. Peritoneum, mesentery and retroperitoneum: No free air, ascites or loculated fluid. Lymph nodes: No pathologic adenopathy based on size criteria. Vasculature: Aorta and branches: Aorta has a normal diameter. IVC and veins: IVC has a normal diameter. Incidental subcentimeter calcified pelvic phleboliths. Portal and mesenteric vasculature: Normal. Bones: No acute osseous abnormality. Soft tissues: Small umbilical hernia containing adipose tissue. IMPRESSION: 1. Mild colonic diverticulosis. No diverticulitis. 2. Right ovarian 2.7 cm cyst. No follow-up imaging is recommended. 3. Intrauterine device in place in good position. Electronically signed by: Ramu Thompson MD 07/26/2024 12:20 AM CDT RP Due to temporary technical issues with the PACS/[employer] reporting system, reports are being patience d by the in-house radiologist without review as a courtesy to ensure prompt reporting the interpreting radiologist is fully responsible for the content of the report. Transcribed Date/Time: 07/26/2024 12:38 AM
--- NOTE | 2024-07-26 01:02 | ER ---
Nurse's Notes [facility] Name: Christen Cruz Age: 28 yrs Sex: Female : 1995 Arrival Date: 07/25/2024 Time: 21:33 Bed 15 Private MD: Diagnosis: Pelvic pain Presentation: 07/25 21:53 Chief complaint: Patient states: has been having issues with her IUD, having pain, cm10 bloating and bleeding. pt states that today the strings fell of and she cannot sit due to the pain. Coronavirus screen: Client denies travel out of the [place] in the last 14 days. Ebola Screen: Patient denies travel to an Ebola-affected area in the 21 days before illness onset. Initial Sepsis Screen: Does the patient meet any 2 criteria? No. Patient's initial sepsis screen is negative. Does the patient have a suspected source of infection? No. Patient's initial sepsis screen is negative. Risk Assessment: Do you want to hurt yourself or someone else? Patient reports no desire to harm self or others. Onset of symptoms was July 25, 2024. 21:53 Method Of Arrival: Ambulatory cm10 21:53 Acuity: JUAN R 3 cm10 Triage Assessment: 21:54 General: Appears in no apparent distress. uncomfortable, Behavior is calm, cooperative. cm10 Pain: Complains of pain in pelvis Pain currently is 10 out of 10 on a pain scale. Neuro: No deficits noted. Level of Consciousness is awake, alert, obeys commands, Oriented to person, place, time, situation, Appropriate for age. Respiratory: No deficits noted. Airway is patent Respiratory effort is even, unlabored, Respiratory pattern is regular, symmetrical. 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 - Infectious Disease History:: Denies. - Social history:: Smoking status: Patient denies any tobacco usage or history of. - Family history:: not pertinent. Screenin:15 [facility] ED Fall Risk Assessment (Adult) History of falling in the last 3 months, kj2 including since admission No falls in past 3 months (0 pts) Confusion or Disorientation No (0 pts) Intoxicated or Sedated No (0 pts) Impaired Gait No (0 pts) Mobility Assist Device Used No (0 pt) Altered Elimination No (0 pt) Score/Fall Risk Level 0 - 2 = Low Risk Maintained a safe environment, Hourly rounding (assess needs \T\ fall precautionary measures) done. Abuse screen: Denies threats or abuse. Denies injuries from another. Nutritional screening: No deficits noted. Tuberculosis screening: No symptoms or risk factors identified. Assessment: 22:15 General: Appears in no apparent distress. uncomfortable, Behavior is calm, cooperative. kj2 Pain: Complains of pain in pelvis Pain currently is 8 out of 10 on a pain scale. Neuro: Level of Consciousness is awake, alert, obeys commands, Oriented to person, place, time, situation. Cardiovascular: Patient's skin is warm and dry. Respiratory: Airway is patent Respiratory effort is even, unlabored. GI: No signs and/or symptoms were reported involving the gastrointestinal system. : No signs and/or symptoms were reported regarding the genitourinary system. 23:00 Reassessment: Patient appears in no apparent distress at this time. Patient and/or kj2 family updated on plan of care and expected duration. Pain level reassessed. Patient is alert, oriented x 3, equal unlabored respirations, skin warm/dry/pink. 07/26 01:16 Reassessment: Patient appears in no apparent distress at this time. Patient and/or al5 family updated on plan of care and expected duration. Pain level reassessed. Patient is alert, oriented x 3, equal unlabored respirations, skin warm/dry/pink. Patient states feeling better. Vital Signs: 07/25 21:53 BP 125 / 97; Pulse 79; Resp 18; Temp 98.3(O); Pulse Ox 100% on R/A; Weight 81.65 kg; cm10 Height 7 ft. 3 in. ; 23:00 BP 116 / 80; Pulse 70; Resp 20; Pulse Ox 100% ; kj2 23:30 BP 102 / 72; Pulse 62; Resp 15; Pulse Ox 98% on R/A; al5 07/26 00:00 BP 118 / 76; Pulse 64; Resp 14; Pulse Ox 97% on R/A; al5 00:30 BP 126 / 93; Pulse 63; Resp 16; Pulse Ox 98% on R/A; al5 01:00 BP 111 / 63; Pulse 64; Resp 15; Pulse Ox 99% ; al5 07/25 21:53 Body Mass Index 16.72 (81.65 kg, 220.98 cm) cm10 ED Course: 07/25 21:36 Patient arrived in ED. jj6 21:37 Geo Rees MD is Attending Physician. rt 21:54 Triage completed. cm10 21:54 Arm band placed on right wrist. Patient placed in an exam room, on a stretcher. cm10 22:15 Patient has correct armband on for positive identification. Bed in low position. Call kj2 light in reach. Provided Education on: call light. 22:33 Hoa Llanos, ALEXYS is Primary Nurse. kj2 22:38 Inserted saline lock: 20 gauge in right antecubital area, using aseptic technique. mm11 Blood collected. Flushed with 10 mL NS. 22:39 CBC with Diff Sent. mm11 22:39 CMP Sent. mm11 22:39 Lipase Sent. mm11 22:39 Test, Urine Sent. mm11 22:39 UA W/ Microscopic Sent. mm11 23:20 Report given to Lisa Luna RN. kj2 23:44 CT Abd/Pelvis - IV Contrast Only In Process Unspecified. EDMS 07/26 01:00 Ansley Conteh MD is Referral Physician. rt 01:08 Assist provider with pelvic exam: Set up pelvic tray. Performed by Geo Rees MD al5 Patient tolerated well. 01:13 No provider procedures requiring assistance completed. IV discontinued, intact, al5 bleeding controlled, No redness/swelling at site. Pressure dressing applied. Administered Medications: 07/25 22:45 Drug: Ondansetron IVP 4 mg IVP once; over 2 minutes Route: IVP; Site: right antecubital;kj2 07/26 01:17 Follow up: Response: No adverse reaction; Nausea is decreased al5 07/25 22:45 Drug: morphine IVP or IV 4 mg IVP once over 4 mins Route: IVP; Infused Over: 4 mins; kj2 Site: right antecubital; 07/26 01:17 Follow up: Response: No adverse reaction; Pain is decreased al5 Medication: 07/25 22:15 VIS not applicable for this client. kj2 Outcome: 07/26 01:01 Discharge ordered by . rt 01:17 Discharged to home ambulatory, al5 01:17 Condition: good 01:17 Discharge instructions given to patient, Instructed on discharge instructions, follow up and referral plans. Demonstrated understanding of instructions, follow-up care, 01:17 Patient left the ED. al5 Signatures: Dispatcher [employer] EDMS Dana Burks jj6 Geo Rees MD MD rt Madyson Escudero, RN RN cm10 Lisa Munson RN RN al5 Hoa Llanos, RN RN kj2 wilder bueno mm11
--- NOTE | 2024-07-26 01:02 | EDPHYS ---
Physician Documentation [facility] Name: Christen Cruz Age: 28 yrs Sex: Female : 1995 Arrival Date: 07/25/2024 Time: 21:33 Bed 15 Private MD: ED Physician Geo Rees HPI: 07/25 23:31 This 28 yrs old Female presents to ER via Ambulatory with complaints of rt Pain/Problem with control implant. 23:31 Patient presents to the ED with pelvic to lower abdominal pain with vaginal bleeding rt starting today. She reports abdominal bloating as well as nausea. She states that the strings of her IUD came out. Has been in place for 8 years. Denies other acute complaints at this time, symptoms moderate in severity, no other aggravating or alleviating factors.. 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 - Infectious Disease History:: Denies. - Social history:: Smoking status: Patient denies any tobacco usage or history of. - Family history:: not pertinent. ROS: 23:31 Constitutional: Negative for fever, chills, and weight loss, Cardiovascular: Negative rt for chest pain, palpitations, and edema, Respiratory: Negative for shortness of breath, cough, wheezing, and pleuritic chest pain, MS/Extremity: Negative for injury and deformity, Skin: Negative for injury, rash, and discoloration, Neuro: Negative for headache, weakness, numbness, tingling, and seizure, 23:31 Abdomen/GI: Positive for abdominal pain, nausea and vomiting, 23:31 : Positive for vaginal bleeding, Negative for urinary symptoms, Exam: 23:31 Constitutional: This is a well developed, well nourished patient who is awake, alert, rt and in no acute distress. Head/Face: Normocephalic, atraumatic. Chest/axilla: Normal chest wall appearance and motion. Nontender with no deformity. No lesions are appreciated. Cardiovascular: Regular rate and rhythm with a normal S1 and S2. No gallops, murmurs, or rubs. Normal PMI, no JVD. No pulse deficits. Respiratory: Lungs have equal breath sounds bilaterally, clear to auscultation and percussion. No rales, rhonchi or wheezes noted. No increased work of breathing, no retractions or nasal flaring. Skin: Warm, dry with normal turgor. Normal color with no rashes, no lesions, and no evidence of cellulitis. MS/ Extremity: Pulses equal, no cyanosis. Neurovascular intact. Full, normal range of motion. Neuro: Awake and alert, GCS 15, oriented to person, place, time, and situation. Cranial nerves II-XII grossly intact. Motor strength 5/5 in all extremities. Sensory grossly intact. Cerebellar exam normal. Normal gait. 23:31 Abdomen/GI: Tenderness to the lower abdomen without guarding, rebound, distention, 07/26 01:10 : Normal external genitalia, small amount of blood in vaginal vault, no strings rt identified from cervix., Vital Signs: 07/25 21:53 BP 125 / 97; Pulse 79; Resp 18; Temp 98.3(O); Pulse Ox 100% on R/A; Weight 81.65 kg; cm10 Height 7 ft. 3 in. ; 23:00 BP 116 / 80; Pulse 70; Resp 20; Pulse Ox 100% ; kj2 23:30 BP 102 / 72; Pulse 62; Resp 15; Pulse Ox 98% on R/A; al5 07/26 00:00 BP 118 / 76; Pulse 64; Resp 14; Pulse Ox 97% on R/A; al5 00:30 BP 126 / 93; Pulse 63; Resp 16; Pulse Ox 98% on R/A; al5 01:00 BP 111 / 63; Pulse 64; Resp 15; Pulse Ox 99% ; al5 07/25 21:53 Body Mass Index 16.72 (81.65 kg, 220.98 cm) cm10 MDM: 07/25 22:02 Medical Screening Exam initiated rt 07/26 01:10 Differential Diagnosis Pelvic pain, ectopic , IUD dysfunction. Data reviewed: rt vital signs, nurses notes, lab test result(s), radiologic studies. I considered the following discharge prescriptions or medication management in the emergency department Medications were administered in the Emergency Department. See MAR. Independent interpretation of the following test(s) in the Emergency Department CT Scan: My interpretation is IUD appears to be in appropriate position on my interpretation of CT scan images. Care significantly affected by the following chronic conditions: Hypertension. Counseling: I had a detailed discussion with the patient and/or guardian regarding the historical points, exam findings, and any diagnostic results supporting the discharge/admit diagnosis, lab results, radiology results, the need for outpatient follow up, to return to the emergency department if symptoms worsen or persist or if there are any questions or concerns that arise at home. Response to treatment: the patient's symptoms have markedly improved after treatment. 07/25 22:22 Order name: CBC with Diff; Complete Time: 23:02 rt 07/25 22:22 Order name: CMP; Complete Time: 23:02 rt 07/25 22:22 Order name: Lipase; Complete Time: 23:02 rt 07/25 22:22 Order name: Test, Urine; Complete Time: 23:02 rt 07/25 22:22 Order name: UA W/ Microscopic; Complete Time: 23:02 rt 07/25 23:06 Order name: CT Abd/Pelvis - IV Contrast Only rt 07/25 22:22 Order name: IV Saline Lock; Complete Time: 22:39 rt 07/25 22:22 Order name: Labs collected and sent; Complete Time: 22:39 rt 07/26 00:40 Order name: Pelvic Exam Setup; Complete Time: 00:53 rt Administered Medications: 07/25 22:45 Drug: Ondansetron IVP 4 mg IVP once; over 2 minutes Route: IVP; Site: right antecubital;kj2 07/26 01:17 Follow up: Response: No adverse reaction; Nausea is decreased al5 07/25 22:45 Drug: morphine IVP or IV 4 mg IVP once over 4 mins Route: IVP; Infused Over: 4 mins; kj2 Site: right antecubital; 07/26 01:17 Follow up: Response: No adverse reaction; Pain is decreased al5 Disposition Summary: 07/26/24 01:01 Discharge Ordered Notes: Location: Home rt Problem: new rt Symptoms: have improved rt Condition: Stable rt Diagnosis - Pelvic pain rt Followup: rt - With: Ansley Conteh MD - When: 2 - 3 days - Reason: Discharge Instructions: - Discharge Summary Sheet rt - Pelvic Pain, Female rt Forms: - Medication Reconciliation Form rt - Antibiotic Education rt - Prescription Opioid Use rt - Patient Portal Instructions rt - Leadership Thank You Letter rt - Work release form al5 Signatures: Dispatcher [employer] EDGeo West MD MD rt Madyson Escudero, RN RN cm10 Hoa Llanos RN RN kj2 Lisa Munson RN al5 Corrections: (The following items were deleted from the chart) 07/25 22:22 22:22 CBC+H.LAB.BRZ ordered. EDMS EDMS 22:22 22:22 COMPREHENSIVE METABOLIC PANEL+C.LAB.BRZ ordered. EDMS EDMS 22:22 22:22 LIPASE+C.LAB.BRZ ordered. EDMS EDMS 22:22 22:22 Test, Urine+UC.LAB.BRZ ordered. EDMS EDMS 22:22 22:22 UA W/ Microscopic+U.LAB.BRZ ordered. EDMS EDMS 23:07 23:06 Abdomen Pelvis W Con+CT.RAD.BRZ ordered. EDMS EDMS
[2024-07-26 02:27] VITALS: TEMP 98.3
[2024-07-26 02:34] VITALS: BP 111/63; O2SAT 99
== END 2024-07-26 01:17 | disposition home or self-care (01) ==
LOC: ER 21:33
DX: R10.2 Pelvic and perineal pain (principal)
CPT/HCPCS: 36415; 74177; 80053; 81001; 81025; 83690; 85025; 96374; 96375; 99284; J2405; Q9967